=== PATIENT | male | born 1955 | race Caucasian/White ===

== ENCOUNTER 2017-02-19 09:27 | Inpatient (IN) | payer BC ==
--- NOTE | ~2017-02-19 | DS ---
Discharge Summary [facility] [address] [place]. [address] NAME: ESTEVAN GONZALES : 51 STATUS : DIS IN PAT#: [id number] AGE: 61 ADM/REG DATE : 02/19/17 MR#: [id number] REPORT SERV DATE: 03/08/17 DICTATED BY: MILENA WILSON DATE: 03/07/17 REPORT STATUS : Draft TRANSCRIBED BY: DI DATE: 03/07/17 Data Collection from hospitalization DISCHARGE DIAGNOSES: 1. Coronary artery disease. 2. Recent gzg-XN-xpujiqfqb myocardial infarction. 3. Hyperlipidemia. 4. Hypertension. 5. Polio/post-polio syndrome. 6. Epistaxis. 7. Obesity. 8. Gastroesophageal reflux disease. 9. Congenital solitary kidney. CONSULTATIONS: Dr. Don and Dr. Samanta Gallo. PROCEDURES: 1. Cardiac catheterization, 02/19/2017. 2. Urgent coronary artery bypass grafting x5 with CONNOR to the LAD, reversed saphenous vein graft placed to the first diagonal, reversed saphenous vein graft placed to the ramus intermedius, reversed saphenous vein graft placed to the terminal obtuse marginal branch, reversed saphenous vein graft placed to the right ventricular branch of the right coronary artery. Endoscopic vein harvest, saphenous vein from the right leg. Transesophageal echocardiography, 02/20/2017. 3. Carotid blood flow study, 02/20/2017. 4. CT scan of the chest without contrast, 02/23/2017. DISCHARGE MEDICATIONS: Cordarone 200 mg daily, Norvasc 10 mg twice a day, vitamin C 1000 mg twice a day, aspirin 81 mg daily, Lipitor 40 mg at bedtime, Plavix 75 mg daily, Valium 5 mg at bedtime, Prozac 40 mg every morning, Flonase nasal spray two sprays nasally daily as needed, Lopressor 12.5 mg twice a day, multivitamins one tablet daily, Prilosec 40 mg every morning, Percocet 10/325 one tablet every four hours as needed, [place] nasal spray one spray nasally daily as needed. CONDITION ON DISCHARGE: Stable. DISPOSITION: The patient was discharged home on a low-sodium, low-cholesterol, cardiac diet with activities as instructed. He would follow up with Lamin Herrera on 04/26/[address] Satish Don on 03/21/2017. He would follow up in the [facility] six weeks following discharge. HOSPITAL COURSE: This is a 61-year-old man, who is disabled because of polio at the age of 3. He began having severe chest pain on the evening prior to this admission that lasted about 20 minutes, only to have it reoccur, for which he came to the emergency room. His troponins were elevated at 0.24 and 0.92. EKG showed no significant changes and essentially normal on the morning of this admission. His EKG showed ST depression anterolaterally. His presentation was that of a mbj-HO-tkmjtqxbh myocardial infarction. He was admitted to the hospital at this time for further evaluation and treatment. Discharge Summary [address] [address] NAME: ESTEVAN GONZALES : 51 STATUS : DIS IN PAT#: [id number] AGE: 61 ADM/REG DATE : 02/19/17 MR#: [id number] REPORT SERV DATE: 03/08/17 DICTATED BY: MILENA WILSON DATE: 03/07/17 REPORT STATUS : Draft TRANSCRIBED BY: DI DATE: 03/07/17 Upon admission, he was seen by Dr. Satish Don. The patient does have a history of hypertension, but no diabetes mellitus. He was felt to have had a xxr-TU-rttszmfcg myocardial infarction. Heparin drip was started. Beta-lucho, aspirin, and Lipitor were given. Decadron, Benadryl, and Zantac were provided for a history of contrast allergy. The patient was taken to the cardiac roofing laborer, where he underwent the abovementioned procedure by Dr. Krishna Lopes. He tolerated this well, and there were no complications. His coronary arteriogram demonstrated significant flow-limiting disease in the LAD, diagonal, ramus, circumflex, and right coronary arteries. Left ventricular ejection fraction was 50% to 55%. It was felt the patient would need to undergo coronary artery bypass grafting. Following day, he was taken to the operating room, where he underwent the abovementioned procedure. He tolerated this well, and there were no complications. He had also had a carotid blood flow study performed. Postoperatively, the patient was feeling good. Statin therapy was continued. On postop day one, he was up, sitting in a chair. He had no new complaints. His incisions looked okay. White blood cell count was 22.3, which was not unexpected after receiving steroids. Serum creatinine was elevated, we were going to increase oral fluids. On 02/22/2017, the patient did complain of pain. He was poorly using incentive spirometry. He had no edema. We encouraged him to mobilize. He had developed paroxysmal atrial fibrillation, but was now back in a sinus rhythm. He was seen by Dr. Samanta Gallo regarding postoperative hyperglycemia. He was doing well after surgery. He had been given intravenous steroids, and his blood pressure was elevated. He was on an insulin drip after surgery. Blood sugar appeared to be controlled. Hemoglobin A1c of 5.7. Creatinine level was 1.34. The patient was going to be changed to NovoLog level 2 sliding scale and was going to be given one shot of Levemir. He did not have any evidence of diabetes. We were expecting his blood sugar to normalize within two to three days, and it was felt that he would not require any medication for his blood sugar at discharge. Blood pressure was controlled. Amiodarone was continued. On 02/23/2017, he had subcu air in the right neck. O2 saturation was 88% on 2 L, this was increased at 3 L. his incisions looked okay. He had no edema. Postoperative hyperglycemia resolved. He had a good response to Bumex. He had no significant edema. Plavix was stopped. Discharge planning was performed. Serum creatinine was 1.5. He developed some epistaxis. He was in a normal sinus rhythm. He has had multiple bowel movements. He was wanting to go home. Aspirin, Plavix, and atorvastatin were continued. He was ambulating with a walker. On 02/26/2017, he was feeling good. He had no palpitations, chest pain, or shortness of breath. He remained in a sinus rhythm. Discharge instructions were given. Due to his improved and stable condition, he was discharged home with the above-stated instructions. Information collected by: Ashley Elmore I submit the above information as my discharge summary. TG/MODL Milena Wilson M.D. Discharge Summary [address] [address] NAME: ESTEVAN GONZALES : 51 STATUS : DIS IN PAT#: [id number] AGE: 61 ADM/REG DATE : 02/19/17 MR#: [id number] REPORT SERV DATE: 03/08/17 DICTATED BY: MILENA WILSON DATE: 03/07/17 REPORT STATUS : Draft TRANSCRIBED BY: DI DATE: 03/07/17 / [id number] CC: Lani Fontanez D.O. Robert Berglund, M.D.
--- NOTE | ~2017-02-19 | OP ---
Record Of Operation [facility] [address] [place] [place] [place]. [address] NAME: ESTEVAN GONZALES : 51 STATUS : ADM IN PAT#: [id number] AGE: 61 ADM/REG DATE : 02/19/17 MR#: [id number] REPORT SERV DATE: 02/21/17 DICTATED BY: MILENA WILSON DATE: 02/20/17 REPORT STATUS : Draft TRANSCRIBED BY: MODL DATE: 02/20/17 DATE OF PROCEDURE: 02/20/2017 PREOPERATIVE DIAGNOSES: 1. Coronary artery disease with axw-TR-alwhcdgqd myocardial infarction. 2. Remote history of polio with lower extremity paralysis. 3. Hypertension. 4. Hypertriglyceridemia. 5. Obesity. POSTOPERATIVE DIAGNOSES: 1. Coronary artery disease with znh-DM-pbrvydwcq myocardial infarction. 2. Remote history of polio with lower extremity paralysis. 3. Hypertension. 4. Hypertriglyceridemia. 5. Obesity. PROCEDURES PERFORMED: 1. Urgent coronary artery bypass grafting x5, left internal mammary artery placed to left anterior descending, reverse saphenous vein graft placed to the first diagonal, reverse saphenous vein graft placed to the ramus intermedius, reverse saphenous vein graft placed to the terminal obtuse marginal branch, reverse saphenous vein graft placed to the right ventricular branch of the right coronary artery. 2. Endoscopic vein harvest, saphenous vein from the right leg. 3. Transesophageal echocardiography. SURGEON: Milena Wilson M.D. ASSISTANTS: Manpreet Perez and Shakila Tolbert. ANESTHESIA: General with Dr. Bruce. NATIONAL ACCOUNT DIRECTOR: Dr. Krishna Lopes. INDICATIONS: This is a 61-year-old gentleman, who has a remote history of polio at age 3 and now uses mostly wheelchair to get around. He has complete paralysis of the left leg and very weak right leg. He presented to the emergency room after chest discomfort on the night prior to his admission. It lasted for about 20 minutes and recurred earlier in the morning of 02/19/2017 when he came to the emergency room. His troponins were positive and he was admitted with kjs-LV-elwmxfymd myocardial infarction. We were asked to see the patient for possible urgent revascularization secondary to severe disease and qki-CQ-rghurgzzy myocardial infarction. We discussed this operation with the patient and his family. After discussing the operation and its indication and risks, they wished to proceed. STS predicted risk of 0.7% mortality and 8.5% morbidity-mortality was shared with the family. FINDINGS AT OPERATION: Record Of Operation [facility] [place]. [address] NAME: ESTEVAN GONZALES : 51 STATUS : ADM IN PAT#: [id number] AGE: 61 ADM/REG DATE : 02/19/17 MR#: [id number] REPORT SERV DATE: 02/21/17 DICTATED BY: MILENA WILSON DATE: 02/20/17 REPORT STATUS : Draft TRANSCRIBED BY: DI DATE: 02/20/17 1. Cross-clamp 78 minutes, total pump time 91 minutes. 2. The LAD was a heavily diseased vessel. It was 2 mm. A 3 mm CONNOR was anastomosed to it with good runoff. 3. The first diagonal was 1.75 mm and heavily diseased. A 3.5 mm RSVG was anastomosed to it with good runoff. 4. The ramus intermedius was 2 mm and heavily diseased. A 5 mm RSVG was anastomosed to it with good runoff. 5. The terminal obtuse marginal branch was the posterior descending artery. This arose from the circumflex system. It was 1.75 mm and mildly diseased. A 4.5 mm RSVG was anastomosed to it with good runoff. 6. The right ventricular branch was 1.75 mm and moderately diseased. A 4 mm RSVG was anastomosed to it with good runoff. 7. The vein quality was good and all grafts had good Doppler signal at the end of the case. 8. MAHENDRA at the end of the operation demonstrated good ventricular function with no surgically significant valvular pathology. DESCRIPTION OF PROCEDURE: The patient was brought to the operating suite, where general anesthesia was induced and airway secured with an endotracheal tube. Lines were secured by Anesthesia and a Rios catheter was placed. The patient's chest, abdomen, groin, and legs were prepped with Hibiclens and ChloraPrep, and draped with Ioban sterile sheets. MAHENDRA probe was placed by Anesthesia and examination carried out in my attendance as discussed above. The saphenous vein was harvested from the right leg using endoscopic technique. Briefly, the vein was cut directly down upon through a 2 cm incision, placed at the medial aspect of the right knee. Then, using VasoView trocars, the vessel was dissected from the surrounding subcutaneous tissue and fat. The side branches were identified, ligated, and divided with cautery. Once adequate length of vein had been dissected, a counterincision was made up in the groin and in the lower leg, where the vein was ligated, divided, and brought through the knee incision. The vein quality was good. The leg wounds were made hemostatic and closed in layers with absorbable suture and skin closed in subcuticular fashion. Then, a midline sternal incision was made and the sternum opened with a saw. The left hemithorax was elevated and the endothoracic fascia was incised. The side branches of the HIRAL were clipped and divided. Once the HIRAL was completely dissected, the patient was anticoagulated with heparin and chest tube placed the left pleural cavity. The HIRAL was clipped and divided distally. There was good flow through the HIRAL and its pedicle was infiltrated with papaverine. Then, the Onesimo retractor was placed and the pericardium opened from the innominate vein. The diaphragm was T'd and tacked to the side of the chest wall. Cannulation pursestring sutures were placed and cannulation was carried out in routine manner. A retrograde cardioplegia cannula was placed in the coronary sinus. When all was in readiness, the patient was placed on cardiopulmonary bypass. The distal targets were marked out on the heart as described in the findings. Then, a heart support was placed. The aorta was crossclamped and initial dose cold blood cardioplegia solution Record Of Operation [facility] [address] [facility] [place]. [address] NAME: ESTEVAN GONZALES : 51 STATUS : ADM IN PAT#: [id number] AGE: 61 ADM/REG DATE : 02/19/17 MR#: [id number] REPORT SERV DATE: 02/21/17 DICTATED BY: MILENA WILSON DATE: 02/20/17 REPORT STATUS : Draft TRANSCRIBED BY: MODMartine DATE: 02/20/17 was given in a combination of antegrade and retrograde fashion, then in retrograde manner following proximal anastomoses. Following the first dose of cardioplegia, the heart was positioned for the PDA graft. This vessel arose from the circumflex system. Arteriotomy was made. The vein graft was trimmed and anastomosed to it with 7-0 Prolene. This vein graft was measured back to the right side of the ascending aorta, where it was divided. We then positioned the heart for the ramus intermedius graft. Another arteriotomy was made and the vein graft trimmed and anastomosed to it with 7-0 Prolene. This vein graft was then measured back to the left side of the ascending aorta, where it was divided. Next, the proximal ends of these two vein grafts were anastomosed to 5 mm punch aortotomy using 6-0 Prolene. Another dose of cardioplegia was given and the heart was positioned for the diagonal graft. Arteriotomy was made. The vein graft was trimmed and anastomosed to it with 7-0 Prolene. This vein graft was measured back to the left side of the ascending aorta, where it was divided. We then positioned the heart for the right ventricular branch vessel of the right coronary artery. Arteriotomy was made. The vein graft was trimmed and anastomosed to it with 7-0 Prolene. This vein graft was then measured to the right side of the ascending aorta, where it was divided. Next, the proximal ends of these two vein grafts were anastomosed to 4.5 mm punch aortotomy with 6-0 Prolene. Another dose of cardioplegia was given and the heart was positioned for the LAD graft. Warming was begun. A long arteriotomy was made through a heavily diseased LAD. The HIRAL was brought out of the left chest through a notch in the pericardium over the pulmonary artery. The HIRAL was opened and anastomosed to the LAD with a running suture of 8-0 Prolene. The endothoracic fascia was tacked to the epicardium. The patient was placed in Trendelenburg and a final dose of warm blood cardioplegia given in retrograde fashion. Ventricular and atrial pacing wires were placed. Following the last dose of cardioplegia and deairing of the aorta, the aortic cross clamp was removed. Distal and proximal anastomoses were inspected and made hemostatic. Doppler demonstrated good flow through the grafts. The heart was paced in an AV sequential fashion at a rate of 80. Ventilations were begun. When the heart demonstrated good contractility, it was allowed to fill and eject. When deairing was completed, the patient was taken out of Trendelenburg and the ascending aortic vent removed and these pursestring sutures tied and reinforced. The patient was then weaned from cardiopulmonary bypass with minimal inotropic support. The venous cannula was removed and these pursestring sutures were tied. MAHENDRA examination demonstrated good ventricular function with no surgically significant valvular pathology. Protamine was administered by Anesthesia and following a period of hemodynamic stability, the aortic cannula was removed and these pursestring sutures tied and reinforced. The patient continued to do well and chest irrigated copiously with saline. Meticulous hemostasis was obtained. Hemasorb was placed along the cut edge of the sternum. Once hemostasis was assured, the pericardium was draped over the anterior surface of the heart and tacked into position. Doppler demonstrated good flow through the grafts following protamine administration. Then, chest tubes were placed and the sternum reapproximated with Record Of Operation [place] [id number] [facility] [place]. [address] NAME: ESTEVAN GONZALES : 51 STATUS : ADM IN [facility]#: [id number] AGE: 61 ADM/REG DATE : 02/19/17 MR#: [id number] REPORT SERV DATE: 02/21/17 DICTATED BY: MILENA WILSON DATE: 02/20/17 REPORT STATUS : Draft TRANSCRIBED BY: DI DATE: 02/20/17 8 sternal wires. The clavipectoral fascia and linea alba were closed with #1 Stratafix. The subcutaneous tissue was closed with Stratafix and skin closed in subcuticular fashion. The patient tolerated the procedure well. There were no complications. Sponge and needle counts were correct. DISPOSITION: The patient was left intubated, sedated, and transported to the intensive care unit in stable condition. TOMAS/DI Milena Wilson M.D. / [id number] CC: Lani Fontanez D.O.
--- NOTE | ~2017-02-19 | CN ---
Consultation Report [facility] [address] [place]. [address] NAME: ESTEVAN GONZALES : 51 STATUS : ADM IN [facility]#: [id number] AGE: 61 ADM/REG DATE : 02/19/17 MR#: [id number] REPORT SERV DATE: 02/22/17 DICTATED BY: ARNALDO SERNA DATE: 02/22/17 REPORT STATUS : Draft TRANSCRIBED BY: MODL DATE: 02/22/17 CONSULTATION DATE OF CONSULTATION: 02/22/2017 REASON FOR CONSULTATION: Postoperative hyperglycemia. HISTORY OF PRESENT ILLNESS: The patient is a 61-year-old male, who is status post coronary artery bypass grafting on 02/20/[address] Wilson. I am consulted for postoperative hyperglycemia. He is doing well after surgery. He denies any shortness of breath. He is complaining of mild postsurgical tenderness on the chest wall. No chest pain. He does not have any history of diabetes. Postoperatively, he was given intravenous steroids and his blood sugar was elevated. He was on insulin drip after surgery, and currently he requires 4 units of regular insulin hourly. Blood sugar looks to be controlled. PAST MEDICAL HISTORY: Includes coronary artery disease, history of remote poliomyelitis with lower extremity paralysis, hypertension, hypertriglyceridemia, obesity, congenital solitary kidney, also gastroesophageal reflux disease, and history of vasomotor rhinitis with prior epistaxis. PAST SURGICAL HISTORY: Includes significant carpal tunnel release, excision of skin lesions, and previous orthopedic surgeries due to history of poliomyelitis. ALLERGIES: INCLUDE IODINATED CONTRAST, TEGRETOL, AND HE HAS TWO EPISODES OF INTOLERANCE OF STATINS WITH MYALGIAS. FAMILY HISTORY: Father and mother both had coronary artery disease, and history of hypercholesterolemia in the family. SOCIAL HISTORY: He is . 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 Currently, he is not working. Disabled. No recreational drug use. No smoking. No alcohol. HOME MEDICATIONS: Include Norvasc 10 mg a day, Valium 5 mg a day, Prozac 40 mg a day, multivitamins daily, Benicar 40 mg a day, and Prilosec 40 mg a day. REVIEW OF SYSTEMS: A 14-point review of systems was done and negative, except what is stated in the history of present illness. PHYSICAL EXAMINATION: GENERAL: Well-nourished, well-developed male, not in acute distress. Resting quietly. VITAL SIGNS: Blood pressure 141/73, temperature 98.4, heart rate 76, respirations 16, and oxygen saturation 93% on room air. HEENT: Head is atraumatic, normocephalic. Conjunctivae clear. Pupils are equal and Consultation Report [facility] [address] [place]. [address] NAME: ESTEVAN GONZALES : 51 STATUS : ADM IN [facility]#: [id number] AGE: 61 ADM/REG DATE : 02/19/17 MR#: [id number] REPORT SERV DATE: 02/22/17 DICTATED BY: ARNALDO SERNA DATE: 02/22/17 REPORT STATUS : Draft TRANSCRIBED BY: DI DATE: 02/22/17 reactive to light and accommodation. Extraocular muscles are intact. NECK: Supple. Trachea is midline. LYMPHATICS: No supraclavicular or cervical lymphadenopathy. LUNGS: Clear to auscultation bilaterally. Normal respiratory effort. CARDIOVASCULAR: Regular rate and rhythm. Point of maximal impulse not displaced. ABDOMEN: Soft, nontender, and nondistended. Positive normoactive bowel sounds. EXTREMITIES: No clubbing, cyanosis. No edema. SKIN: Normal color and turgor. PSYCHIATRIC: Normal mood and affect. LABORATORY RESULTS: Blood sugar 150, 167, 167, 136, and 101. Currently on 4 units of insulin hourly. Hemoglobin A1c is 5.7. White count 24.5, hemoglobin 11.5, hematocrit 34.7, and platelet count 201. Sodium 140, potassium 4, chloride 106, carbon dioxide 23, BUN 26, creatinine 1.34, and blood sugar 125. ASSESSMENT AND PLAN: 1. This is a 61-year-old male, having postoperative hyperglycemia secondary to steroids given after surgery as well as postsurgical stress. The patient is going to be changed to NovoLog level 2 sliding scale as well as he is going to be given 1 shot of Levemir today 15 units. He does not have any evidence of diabetes. His hemoglobin A1c is 5.6. We are expecting his sugar to normalize within two to three days, and he will not require any medications for his blood sugar on discharge. 2. Hypertension, controlled. MG/MODL Arnaldo Serna M.D. / [id number] CC: Lani Fontanez D.O.
--- NOTE | ~2017-02-19 | CN ---
Consultation Report [facility] [address] [place]. [address] NAME: ESTEVAN GONZALES : 51 STATUS : REG REF PAT#: [id number] AGE: 61 ADM/REG DATE : 02/19/17 MR#: [id number] REPORT SERV DATE: 02/20/17 DICTATED BY: MILENA WILSON DATE: 02/20/17 REPORT STATUS : Draft TRANSCRIBED BY: MODL DATE: 02/20/17 CONSULTATION DATE OF CONSULTATION: 02/19/2017 REASON FOR CONSULTATION: Coronary artery disease, consideration for coronary artery bypass grafting in the context of recent axz-CC-rtgrftgaj myocardial infarction. CHIEF COMPLAINT: Chest pain, onset Sunday. HISTORY OF PRESENT ILLNESS: This is a 61-year-old gentleman with no prior history of coronary artery disease, who describes about a 3-month history of decreasing energy and exercise tolerance. He had polio as a child, hence much of his day in a wheelchair. He reports that although he is accustomed to weakness as a consequence of his polio, he has noted a decrease in his energy over the past three months. He denies any prior chest pain until Sunday night, when about midnight he was watching television experienced severe chest pain. This radiated into both shoulders and arms and up into his neck and was described as a pressure or a feeling that his jaw had been punched repeatedly. He had associated shortness of breath. He describes the pain as a 9/10 and this lasted about 20 minutes and then slowly decreased, but never left completely. He then experienced crescendo of his pain again and drove himself to the emergency department. By the time he arrived at the emergency department, his pain was nearly resolved, but after registering in, he re- experienced chest pain, he graded about a 6/10. At this time, he was given morphine, nitrates, and aspirin. He was found to have mildly elevated troponin I and yesterday underwent coronary arteriogram that demonstrated significant flow-limiting disease in the left anterior descending, diagonal, ramus, circumflex, and right coronary arteries. Left ventricular ejection fraction was 50% to 55% and we were asked to see for possible elective coronary artery bypass grafting. The films were reviewed with Dr. Loeps last night, and after talking with the patient, he would prefer to stay and have surgery now rather than have surgery electively. PRIOR MEDICAL HISTORY: 1. Polio. 2. Post-polio syndrome. 3. Hypertension. 4. Hyperlipidemia. 5. Congenital solitary kidney, also gastroesophageal reflux disease and irritable bowel syndrome. 6. Vasomotor rhinitis/sinusitis, prior epistaxis. PRIOR SURGICAL HISTORY: Significant for carpal tunnel release, excision of skin lesions, previous orthopedic surgeries due to history of polio. ALLERGIES: INCLUDE IODINATED CONTRAST MEDIA, TEGRETOL, AND HE HAS HAD TWO EPISODES OF Consultation Report [place] [address] [place]. [address] NAME: ESTEVAN GONZALES : 51 STATUS : REG REF PAT#: [id number] AGE: 61 ADM/REG DATE : 02/19/17 MR#: [id number] REPORT SERV DATE: 02/20/17 DICTATED BY: MILENA WILSON DATE: 02/20/17 REPORT STATUS : Draft TRANSCRIBED BY: DI DATE: 02/20/17 INTOLERANCE TO STATIN DRUGS WITH MYALGIAS. FAMILY HISTORY: Father and mother both had coronary artery disease and underwent PCI, also family history of high cholesterol. 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 Currently, he is not working and is disabled. He does use marijuana on a daily basis. REVIEW OF SYSTEMS: GENERAL: Negative for any recent weight change, fevers, chills, night sweats, or malaise. ENT: As above. RESPIRATORY: Negative for lung problems. Negative for shortness of breath. Negative for hemoptysis. CV: As above. GI: Positive for reflux and irritable bowel. : Positive for solitary kidney and difficulty emptying his bladder. Negative for hematuria or urinary tract infections. MUSCULOSKELETAL: Atrophied and deformed left lower extremity, loss of strength in the right lower extremity. NEURO/PSYCH: Denies any strokes or TIAs. He has diminished strength in both lower extremities. He spends much of his day in his wheelchair and is able to walk briefly with use of a walker. HEME/ONC: Negative for cancer other than skin cancers negative for free bleeding or easy bruising. ENDOCRINE: Negative for any thyroid problems. Negative for diabetes. Otherwise, negative or as above. PHYSICAL EXAMINATION: GENERAL: He is a pleasant overweight white male, in no acute distress. His height is 170.18 cm, weight 84.96 kg. VITAL SIGNS: Blood pressure 129/73, temperature 98.3, pulse 67, respirations 16, saturations 92%. HEENT: Normocephalic, atraumatic. Pupils equal, round, reactive to light and accommodation. Sclerae clear, conjunctivae pink. Oral and buccal mucosa pink and moist. Teeth in good condition. Mallampati class 1 airway. NECK: Supple. No restricted range of motion. No carotid bruits. No jugular venous distention. CHEST: Clear to auscultation, no use of accessory muscles, no chest wall tenderness. BREASTS: Not examined. CV: Regular rate and rhythm without murmur or rub. He has palpable and symmetric central and peripheral pulses, no clubbing, cyanosis, or edema. ABDOMEN: Soft, obese, nontender with normoactive bowel sounds. No hepatosplenomegaly. /RECTAL: Declined. MUSCULOSKELETAL: No kyphoscoliosis, his left leg is somewhat misshapen and atrophied and right leg lacks muscle tone. Consultation Report [address] [address] NAME: ESTEVAN GONZALES : 51 STATUS : REG REF PAT#: [id number] AGE: 61 ADM/REG DATE : 02/19/17 MR#: [id number] REPORT SERV DATE: 02/20/17 DICTATED BY: MILENA WILSON DATE: 02/20/17 REPORT STATUS : Draft TRANSCRIBED BY: DI DATE: 02/20/17 NEUROLOGIC: He is alert and oriented to day, date, place, and situation. Speech is clear, fluent. No focal neurologic deficits. SKIN, HAIR, AND NAILS: No lesions, masses, or rashes. DATA: He has coronary arteriogram which we reviewed with Dr. Lopes. His EKG showing nonspecific T-wave changes, underlying sinus rhythm. LABORATORIES: Sodium is 140, potassium 3.5, chloride 107, CO2 of 25, BUN 23, creatinine 1.18. His INR is 1.1. Urinalysis is clean. CBC shows mild leukocytosis with WBCs 13.1, hemoglobin 13.2, hematocrit 39.1, and platelets 263,000. Carotid ultrasound is currently pending. IMPRESSION: Three-vessel flow-limiting coronary artery disease in a 61-year-old gentleman, status post prior polio with multiple risk factors for coronary artery disease. We talked to him about possible coronary artery bypass grafting, indications, benefits, and serious risks which include things like bleeding, need for blood or blood product transfusion and their attendant risks, damage to the kidneys including kidney failure and dialysis, damage to the liver or the lungs, infection including deep sternal infection, mediastinitis, heart attack, stroke, abnormal heart rhythm which occurs in 1/3 patients, and even . Using Society of Thoracic Surgeons database, his risk of mortality was calculated at 0.683%, any morbidity or mortality at 8.544% and this was shared with the patient and his family. He indicates his understanding and is willing to proceed. Our plan is for coronary artery bypass grafting at this admission. We appreciate the opportunity to participate in this gentleman's care. DICTATED BY: Fabian Mccoy/DI Milena Wilson M.D. / [id number] CC: Lani Fontanez D.O.
[~2017-02-19 09:27] MED LIST: BENICAR40 PO; KAPIDEX60 MG PO; MULTIPLE VIT PO; NORV10 PO; PROZAC40 MG PO; V5 PO
[2017-02-19] MEDS ORDERED: ADVIL PO (14:45)
[2017-02-19] MEDS ORDERED: OCEAN NAS (14:47)
[2017-02-19] MEDS ORDERED: FLONASE NAS (14:51)
[2017-02-19 18:28] LABS: ALLENS TEST Pos; BE (BASE EXCESS) 1.8 MEQ/L (0 +/- 2.5); CARBOXYHEMOGLOBIN 1.4 % (0-3); HCO3 (ACTUAL BICARBONATE) 25.5 MEQ/L (23-27); HEMOBLOGIN CONTENT 15.2 G/DL (14-18); INSTRUMENT SERIAL # 8087; METHEMOGLOBIN 0.2 % (0-3); O2 CONTENT 20.4 VOL% (18-24); PCO2 (CO2 TENSION) 37 MMHG (35-45); PO2 (O2 TENSION) 84 MMHG (79-93); SAMPLE Arterial; pH 7.45 (7.37-7.43)
[2017-02-19 23:05] LABS: ASCORBIC ACID (UR NOT ORDER) NEG (NEG); BILIRUBIN, URINE NEGATIVE (NEG); KETONE, URINE NEGATIVE (NEG); LEUKOCYTE ESTERASE(NOT OR NEG (NEG); WBC (NOT ORDERED) (RFLEX) < 1 (0-5)
[2017-02-20 04:37] LABS: BASOPHILS 0.2 %; BASOPHILS ABSOLUTE 0.03 10/3/uL (0.0-0.16); EOSINOPHILS 0.4 %; EOSINOPHILS ABSOLUTE 0.05 10/3/uL (0.0-0.53); HEMATOCRIT 39.1 % (40.0-51.0); HEMOGLOBIN 13.2 g/dL (13.6-17.8); IMMATURE GRANULOCYTES 0.2 %; IMMATURE GRANULOCYTES ABSOLUTE 0.03 10/3/uL (0.0-0.11); LYMPHOCYTES 12.5 %; LYMPHOCYTES ABSOLUTE 1.64 10/3/uL (0.67-4.30); MANUAL DIFF NO %; MEAN CORPUS HGB CONC 33.8 g/dL (32.0-36.0); MEAN CORPUSCULAR HEMOGLOB 31.2 pg (26.0-34.0); MEAN CORPUSCULAR VOLUME 92.4 fL (80-100); MEAN PLATELET VOLUME 8.6 fL (9.2-13.0); MONOCYTES 6.7 %; MONOCYTES ABSOLUTE 0.88 10/3/uL (0.21-1.20); NEUTROPHILS ABSOLUTE 10.51 10/3/uL (2.02-8.40); PLATELET COUNT 263 10/3/uL (150-400); RBC DISTRIBUTION WIDTH 13.8 % (12.0-16.0); RED CELL COUNT 4.23 10/6/uL (4.7-6.1); WHITE BLOOD CELLS 13.1 10/3/uL (4.5-10.5)
[2017-02-20 04:43] LABS: INTERNATIONAL NORMAL RATI 1.1 UNITS (-); PROTIME (NOT ORD) 14.1 SEC (12.0-14.5)
[2017-02-20 05:06] LABS: % IRON SAT 37 % (20-50); ALBUMIN 3.3 G/DL (3.5-5.0); ALKALINE PHOSPHATASE 64 U/L (45-117); BUN (BLOOD UREA NITROGEN) 23 MG/DL (6-23); CALCIUM, SERUM 8.7 MG/DL (8.5-10.4); CHLORIDE, SERUM 107 MMOL/L (96-112); CO2 (CARBON DIOXIDE) 25 MMOL/L (24-34); CREATININE 1.18 MG/DL (0.70-1.30); GFR AFRICAN AMERICAN 76 ML/MIN (>=60); GFR NON AFRICAN AMERICAN 65 ML/MIN (>=60); GLOBULIN 3.3 G/DL (2.5-4.1); GLUCOSE, SERUM 110 MG/DL (60-99); IRON BINDING CAPACITY 313 MCG/DL (250-450); IRON, SERUM 117 MCG/DL (35-150); POTASSIUM, SERUM 3.5 MMOL/L (3.5-5.3); SGOT(AST) 21 U/L (5-40); SGPT(ALT) 23 U/L (5-65); SODIUM, SERUM 140 MMOL/L (135-148); TOTAL BILIRUBIN 0.4 MG/DL (0-1.2); TOTAL PROTEIN 6.6 G/DL (6.0-8.5)
[2017-02-20 20:13] LABS: BE (BASE EXCESS) -3.9 MEQ/L (0 +/- 2.5); CARBOXYHEMOGLOBIN 0.3 % (0-3); HCO3 (ACTUAL BICARBONATE) 21.1 MEQ/L (23-27); HEMOBLOGIN CONTENT 13.4 G/DL (14-18); INSTRUMENT SERIAL # 11843; METHEMOGLOBIN 0.6 % (0-3); MODE SIMV; O2 CONTENT 19.4 VOL% (18-24); OPERATOR ID 13415; PCO2 (CO2 TENSION) 39 MMHG (35-45); PO2 (O2 TENSION) 343 MMHG (79-93); SAMPLE Arterial; TIDAL VOLUME 650 ML; pH 7.36 (7.37-7.43)
[2017-02-20 20:30] LABS: HEMATOCRIT 36.7 % (40.0-51.0); HEMOGLOBIN 12.3 g/dL (13.6-17.8)
[2017-02-20 20:31] LABS: PLATELET COUNT 181 10/3/uL (150-400)
[2017-02-20 20:41] LABS: INTERNATIONAL NORMAL RATI 1.3 UNITS (-); PARTIAL THROMBO TIME 29.6 SEC (22.5-37.2); PROTIME (NOT ORD) 15.9 SEC (12.0-14.5)
[2017-02-20 20:45] LABS: BUN (BLOOD UREA NITROGEN) 22 MG/DL (6-23); CALCIUM, SERUM 8.8 MG/DL (8.5-10.4); CHLORIDE, SERUM 112 MMOL/L (96-112); CO2 (CARBON DIOXIDE) 27 MMOL/L (24-34); CREATININE 1.44 MG/DL (0.70-1.30); GFR AFRICAN AMERICAN 59 ML/MIN (>=60); GFR NON AFRICAN AMERICAN 51 ML/MIN (>=60); GLUCOSE, SERUM 115 MG/DL (60-99); POTASSIUM, SERUM 3.8 MMOL/L (3.5-5.3); SODIUM, SERUM 144 MMOL/L (135-148)
[2017-02-21 01:11] LABS: BE (BASE EXCESS) -2.5 MEQ/L (0 +/- 2.5); CARBOXYHEMOGLOBIN 0.2 % (0-3); DEVICE NC; HCO3 (ACTUAL BICARBONATE) 23.3 MEQ/L (23-27); HEMOBLOGIN CONTENT 13.8 G/DL (14-18); INSTRUMENT SERIAL # 11843; METHEMOGLOBIN 0.4 % (0-3); O2 CONTENT 18.8 VOL% (18-24); OPERATOR ID 13415; PCO2 (CO2 TENSION) 44 MMHG (35-45); PO2 (O2 TENSION) 99 MMHG (79-93); SAMPLE Arterial; pH 7.34 (7.37-7.43)
[2017-02-21 02:36] LABS: HEMATOCRIT 38.6 % (40.0-51.0); HEMOGLOBIN 12.9 g/dL (13.6-17.8); MANUAL DIFF YES %; MEAN CORPUS HGB CONC 33.4 g/dL (32.0-36.0); MEAN CORPUSCULAR HEMOGLOB 31.4 pg (26.0-34.0); MEAN CORPUSCULAR VOLUME 93.9 fL (80-100); PLATELET COUNT 210 10/3/uL (150-400); RBC DISTRIBUTION WIDTH 13.9 % (12.0-16.0); RED CELL COUNT 4.11 10/6/uL (4.7-6.1); WHITE BLOOD CELLS 22.3 10/3/uL (4.5-10.5)
[2017-02-21 02:51] LABS: BUN (BLOOD UREA NITROGEN) 24 MG/DL (6-23); CALCIUM, SERUM 8.2 MG/DL (8.5-10.4); CHLORIDE, SERUM 117 MMOL/L (96-112); CO2 (CARBON DIOXIDE) 25 MMOL/L (24-34); CREATININE 1.36 MG/DL (0.70-1.30); GFR AFRICAN AMERICAN 64 ML/MIN (>=60); GFR NON AFRICAN AMERICAN 55 ML/MIN (>=60); GLUCOSE, SERUM 100 MG/DL (60-99); POTASSIUM, SERUM 4.2 MMOL/L (3.5-5.3); SODIUM, SERUM 150 MMOL/L (135-148)
[2017-02-21 02:54] LABS: BAND NEUTROPHILS 5 %; LYMPHOCYTES 3 %; LYMPHOCYTES ABSOLUTE (CALC) 0.67 10/3/uL (0.67-4.30); MONOCYTES 1 %; MONOCYTES ABSOLUTE (CALC) 0.22 10/3/uL (0.21-1.20); NEUTROPHILS ABSOLUTE (CALC) 21.41 10/3/uL (2.02-8.40); PLATELET ESTIMATE ADQ (ADEQUATE); RBC MORPHOLOGY NORM (NORMAL); SEGMENTED NEUTROPHIL (0) 91 %; TOTAL NUCLEATED CELLS 100
[2017-02-21 15:37] LABS: HEMATOCRIT 35.8 % (40.0-51.0)
[2017-02-22 04:28] LABS: HEMATOCRIT 34.7 % (40.0-51.0); HEMOGLOBIN 11.5 g/dL (13.6-17.8); MEAN CORPUS HGB CONC 33.1 g/dL (32.0-36.0); MEAN CORPUSCULAR VOLUME 93.5 fL (80-100); MEAN PLATELET VOLUME 9.5 fL (9.2-13.0); PLATELET COUNT 201 10/3/uL (150-400); RBC DISTRIBUTION WIDTH 14.6 % (12.0-16.0); RED CELL COUNT 3.71 10/6/uL (4.7-6.1); WHITE BLOOD CELLS 24.5 10/3/uL (4.5-10.5)
[2017-02-22 04:31] LABS: MANUAL DIFF YES %
[2017-02-22 04:35] LABS: BUN (BLOOD UREA NITROGEN) 26 MG/DL (6-23); CALCIUM, SERUM 8.5 MG/DL (8.5-10.4); CO2 (CARBON DIOXIDE) 23 MMOL/L (24-34); CREATININE 1.34 MG/DL (0.70-1.30); GFR AFRICAN AMERICAN 65 ML/MIN (>=60); GFR NON AFRICAN AMERICAN 56 ML/MIN (>=60); GLUCOSE, SERUM 125 MG/DL (60-99)
[2017-02-22 04:39] LABS: CHLORIDE, SERUM 106 MMOL/L (96-112); SODIUM, SERUM 140 MMOL/L (135-148)
[2017-02-22 04:52] LABS: BAND NEUTROPHILS 3 %; LYMPHOCYTES 11 %; MONOCYTES 5 %; MONOCYTES ABSOLUTE (CALC) 1.23 10/3/uL (0.21-1.20); NEUTROPHILS ABSOLUTE (CALC) 20.58 10/3/uL (2.02-8.40); SEGMENTED NEUTROPHIL (0) 81 %; TOTAL NUCLEATED CELLS 100
[2017-02-22 04:53] LABS: PLATELET ESTIMATE ADQ (ADEQUATE); RBC MORPHOLOGY NORM (NORMAL)
[2017-02-23 05:33] LABS: BASOPHILS 0 %; BASOPHILS ABSOLUTE 0.01 10/3/uL (0.0-0.16); EOSINOPHILS 1.4 %; EOSINOPHILS ABSOLUTE 0.28 10/3/uL (0.0-0.53); HEMATOCRIT 32.5 % (40.0-51.0); IMMATURE GRANULOCYTES 0.4 %; IMMATURE GRANULOCYTES ABSOLUTE 0.08 10/3/uL (0.0-0.11); MANUAL DIFF NO %; MEAN CORPUS HGB CONC 33.8 g/dL (32.0-36.0); MEAN CORPUSCULAR HEMOGLOB 31.3 pg (26.0-34.0); MEAN CORPUSCULAR VOLUME 92.3 fL (80-100); MEAN PLATELET VOLUME 9.4 fL (9.2-13.0); MONOCYTES 10.2 %; MONOCYTES ABSOLUTE 2.05 10/3/uL (0.21-1.20); NEUTROPHILS ABSOLUTE 16.54 10/3/uL (2.02-8.40); PLATELET COUNT 198 10/3/uL (150-400); RBC DISTRIBUTION WIDTH 14.6 % (12.0-16.0); RED CELL COUNT 3.52 10/6/uL (4.7-6.1); WHITE BLOOD CELLS 20.2 10/3/uL (4.5-10.5)
[2017-02-23 05:40] LABS: CALCIUM, SERUM 8.3 MG/DL (8.5-10.4); CHLORIDE, SERUM 105 MMOL/L (96-112); CO2 (CARBON DIOXIDE) 24 MMOL/L (24-34); CREATININE 1.37 MG/DL (0.70-1.30); GFR AFRICAN AMERICAN 63 ML/MIN (>=60); GFR NON AFRICAN AMERICAN 55 ML/MIN (>=60); GLUCOSE, SERUM 114 MG/DL (60-99); POTASSIUM, SERUM 4.1 MMOL/L (3.5-5.3); SODIUM, SERUM 138 MMOL/L (135-148)
[2017-02-23 05:42] LABS: BUN (BLOOD UREA NITROGEN) 33 MG/DL (6-23)
[2017-02-24 06:33] LABS: BASOPHILS 0.1 %; BASOPHILS ABSOLUTE 0.02 10/3/uL (0.0-0.16); EOSINOPHILS 5.3 %; EOSINOPHILS ABSOLUTE 0.72 10/3/uL (0.0-0.53); HEMATOCRIT 32.8 % (40.0-51.0); HEMOGLOBIN 11.5 g/dL (13.6-17.8); IMMATURE GRANULOCYTES 0.4 %; IMMATURE GRANULOCYTES ABSOLUTE 0.05 10/3/uL (0.0-0.11); LYMPHOCYTES 10.5 %; LYMPHOCYTES ABSOLUTE 1.42 10/3/uL (0.67-4.30); MEAN CORPUS HGB CONC 35.1 g/dL (32.0-36.0); MEAN CORPUSCULAR HEMOGLOB 32.6 pg (26.0-34.0); MEAN CORPUSCULAR VOLUME 92.9 fL (80-100); MEAN PLATELET VOLUME 9.2 fL (9.2-13.0); MONOCYTES 9.1 %; MONOCYTES ABSOLUTE 1.22 10/3/uL (0.21-1.20); NEUTROPHILS 74.6 %; NEUTROPHILS ABSOLUTE 10.03 10/3/uL (2.02-8.40); PLATELET COUNT 232 10/3/uL (150-400); RBC DISTRIBUTION WIDTH 14.3 % (12.0-16.0); RED CELL COUNT 3.53 10/6/uL (4.7-6.1); WHITE BLOOD CELLS 13.5 10/3/uL (4.5-10.5)
[2017-02-24 06:34] LABS: MANUAL DIFF NO %
[2017-02-24 06:45] LABS: CALCIUM, SERUM 8.3 MG/DL (8.5-10.4); CHLORIDE, SERUM 104 MMOL/L (96-112); CREATININE 1.42 MG/DL (0.70-1.30); GFR AFRICAN AMERICAN 60 ML/MIN (>=60); GFR NON AFRICAN AMERICAN 52 ML/MIN (>=60); GLUCOSE, SERUM 117 MG/DL (60-99); POTASSIUM, SERUM 3.5 MMOL/L (3.5-5.3); SODIUM, SERUM 143 MMOL/L (135-148)
[2017-02-24 06:46] LABS: BUN (BLOOD UREA NITROGEN) 29 MG/DL (6-23); CO2 (CARBON DIOXIDE) 32 MMOL/L (24-34)
[2017-02-25 04:12] LABS: BASOPHILS 0.2 %; BASOPHILS ABSOLUTE 0.03 10/3/uL (0.0-0.16); EOSINOPHILS 6.7 %; EOSINOPHILS ABSOLUTE 0.88 10/3/uL (0.0-0.53); HEMATOCRIT 31.5 % (40.0-51.0); HEMOGLOBIN 10.5 g/dL (13.6-17.8); IMMATURE GRANULOCYTES 0.4 %; IMMATURE GRANULOCYTES ABSOLUTE 0.05 10/3/uL (0.0-0.11); LYMPHOCYTES 15.6 %; LYMPHOCYTES ABSOLUTE 2.05 10/3/uL (0.67-4.30); MANUAL DIFF NO %; MEAN CORPUS HGB CONC 33.3 g/dL (32.0-36.0); MEAN CORPUSCULAR VOLUME 92.9 fL (80-100); MEAN PLATELET VOLUME 9.1 fL (9.2-13.0); MONOCYTES 10.7 %; NEUTROPHILS 66.4 %; NEUTROPHILS ABSOLUTE 8.69 10/3/uL (2.02-8.40); PLATELET COUNT 273 10/3/uL (150-400); RBC DISTRIBUTION WIDTH 14.5 % (12.0-16.0); RED CELL COUNT 3.39 10/6/uL (4.7-6.1); WHITE BLOOD CELLS 13.1 10/3/uL (4.5-10.5)
[2017-02-25 04:23] LABS: BUN (BLOOD UREA NITROGEN) 37 MG/DL (6-23); CALCIUM, SERUM 8.4 MG/DL (8.5-10.4); CHLORIDE, SERUM 105 MMOL/L (96-112); CO2 (CARBON DIOXIDE) 29 MMOL/L (24-34); CREATININE 1.51 MG/DL (0.70-1.30); GFR AFRICAN AMERICAN 56 ML/MIN (>=60); GFR NON AFRICAN AMERICAN 48 ML/MIN (>=60); GLUCOSE, SERUM 123 MG/DL (60-99); POTASSIUM, SERUM 3.8 MMOL/L (3.5-5.3); SODIUM, SERUM 141 MMOL/L (135-148)
[2017-02-26 04:03] LABS: BASOPHILS 0.3 %; BASOPHILS ABSOLUTE 0.04 10/3/uL (0.0-0.16); HEMATOCRIT 33.1 % (40.0-51.0); IMMATURE GRANULOCYTES 0.4 %; IMMATURE GRANULOCYTES ABSOLUTE 0.06 10/3/uL (0.0-0.11); LYMPHOCYTES 16.5 %; MEAN CORPUS HGB CONC 33.2 g/dL (32.0-36.0); MEAN CORPUSCULAR VOLUME 93.2 fL (80-100); MEAN PLATELET VOLUME 8.9 fL (9.2-13.0); MONOCYTES 6.4 %; MONOCYTES ABSOLUTE 0.89 10/3/uL (0.21-1.20); NEUTROPHILS 71.4 %; NEUTROPHILS ABSOLUTE 9.95 10/3/uL (2.02-8.40); PLATELET COUNT 314 10/3/uL (150-400); RBC DISTRIBUTION WIDTH 14.3 % (12.0-16.0); RED CELL COUNT 3.55 10/6/uL (4.7-6.1); WHITE BLOOD CELLS 13.9 10/3/uL (4.5-10.5)
[2017-02-26 04:07] LABS: MANUAL DIFF NO %
[2017-02-26 04:13] LABS: CALCIUM, SERUM 8.9 MG/DL (8.5-10.4); CHLORIDE, SERUM 101 MMOL/L (96-112); CO2 (CARBON DIOXIDE) 28 MMOL/L (24-34); CREATININE 1.37 MG/DL (0.70-1.30); GFR AFRICAN AMERICAN 63 ML/MIN (>=60); GFR NON AFRICAN AMERICAN 55 ML/MIN (>=60); GLUCOSE, SERUM 140 MG/DL (60-99); POTASSIUM, SERUM 3.9 MMOL/L (3.5-5.3); SODIUM, SERUM 137 MMOL/L (135-148)
[2017-02-26 04:14] LABS: BUN (BLOOD UREA NITROGEN) 24 MG/DL (6-23)
[2017-02-26] MEDS ORDERED: PLAVIX PO (09:09)
[2017-02-26] MEDS ORDERED: LIPITOR40 PO (09:10)
[2017-02-26] MEDS ORDERED: LOP25 PO (09:10)
[2017-02-26] MEDS ORDERED: CORDARONE PO (09:11)
[2017-02-26] MEDS ORDERED: PERCOCET 10/3251 TAB PO (09:11)
[2017-02-26] MEDS ORDERED: ASAB PO (09:12)
[2017-02-26] MEDS ORDERED: VITC500 PO (09:12)
== END 2017-02-26 13:20 | disposition home or self-care (01) | DRG 233 ==
LOC: CORLMH 09:27 → SSU1 10:43 → SDC/OF 02-20 09:45 → CVICU 02-20 16:06 → 5NO 02-21 14:03
PROVIDERS: Internal Medicine Cardiovascular Disease; Nurse Practitioner Family; Thoracic Surgery (Cardiothoracic Vascular Surgery)
PROC: 4A023N7 Measurement of Cardiac Sampling and Pressure, Left Heart, Percutaneous Approach (ICD-10-PCS; principal; 2017-02-19)
PROC: B2111ZZ Fluoroscopy of Multiple Coronary Arteries using Low Osmolar Contrast (ICD-10-PCS; 2017-02-19)
PROC: B2151ZZ Fluoroscopy of Left Heart using Low Osmolar Contrast (ICD-10-PCS; 2017-02-19)
PROC: 0210099 Bypass Coronary Artery, One Artery from Left Internal Mammary with Autologous Venous Tissue, Open Approach (ICD-10-PCS; 2017-02-20)
PROC: 06BP0ZZ Excision of Right Saphenous Vein, Open Approach (ICD-10-PCS; 2017-02-20)
PROC: 5A1221Z Performance of Cardiac Output, Continuous (ICD-10-PCS; 2017-02-20)
PROC: B246ZZ4 Ultrasonography of Right and Left Heart, Transesophageal (ICD-10-PCS; 2017-02-20)
PROC: 021309W Bypass Coronary Artery, Four or More Arteries from Aorta with Autologous Venous Tissue, Open Approach (ICD-10-PCS; 2017-02-20 13:30)
DX: I25.10 Atherosclerotic heart disease of native coronary artery without angina pectoris (principal); I21.4 Non-ST elevation (NSTEMI) myocardial infarction; E87.0 Hyperosmolality and hypernatremia; Q60.0 Renal agenesis, unilateral; N17.9 Acute kidney failure, unspecified; N18.3 Chronic kidney disease, stage 3 (moderate); G83.9 Paralytic syndrome, unspecified; E78.5 Hyperlipidemia, unspecified; K21.9 Gastro-esophageal reflux disease without esophagitis; K58.9 Irritable bowel syndrome, unspecified; Z86.12 Personal history of poliomyelitis; Z82.49 Family history of ischemic heart disease and other diseases of the circulatory system; F12.90 Cannabis use, unspecified, uncomplicated; E78.1 Pure hyperglyceridemia; R04.0 Epistaxis; R73.9 Hyperglycemia, unspecified; E66.9 Obesity, unspecified; I48.0 Paroxysmal atrial fibrillation; I12.9 Hypertensive chronic kidney disease with stage 1 through stage 4 chronic kidney disease, or unspecified chronic kidney disease
CPT/HCPCS: 31720; 36415; 36600; 71010; 71250; 80048; 80053; 80061; 80076; 81001; 82330; 82803; 82805; 82947; 82962; 83036; 83540; 83550; 83690; 83735; 84132; 84295; 84460; 84484; 85014; 85018; 85025; 85049; 85347; 85610; 85730; 86850; 86900; 86901; 86920; 87641; 93005; 93312; 93320; 93325; 93459; 93880; 94002; 94640; 94660; 94770; 96374; 99152; 99153; 99291; A9270-GY; C1725; C1751; C1760; C1769; C1894; J0690; J1644; J1940; J2150; J2250; J2370; J2405; J2440; J2720; J2765; J2795; J2930; J3010; J3475; J3480; P9045; P9047; Q9967

== ENCOUNTER 2017-03-03 20:02 | Inpatient (IN) | payer BC, MEDICARE ==
--- NOTE | ~2017-03-03 | HP ---
History And Physical [place] [id number] [facility] [place]. [address] NAME: ESTEVAN GONZALES : 51 STATUS : ADM IN [facility]#: [id number] AGE: 61 ADM/REG DATE : 03/03/17 MR#: [id number] REPORT SERV DATE: 03/04/17 DICTATED BY: ZAINAB YODER DATE: 03/03/17 REPORT STATUS : Draft TRANSCRIBED BY: MODL DATE: 03/03/17 DATE OF ADMISSION: 03/03/2017 CHIEF COMPLAINT: A 61-year-old male undergoing a CABG on 02/20/2017 under the care of Dr. Wilson, now presenting with increasing weakness, somnolence, confusion, and shortness of breath. HISTORY OF PRESENT ILLNESS: The patient's history was obtained through careful interview with the patient and , coupled with [facility]. The patient underwent a CABG on February 20 under the care of Dr. Wilson. He was able to be discharged on February 25 and was feeling actually quite well by that time. But over the last three days, he has had increasing lethargy, sleepiness, confusion, at times disorientation, and incoherence. He has had very poor energy, decreased appetite, but no nausea or vomiting. He describes shortness of breath characterized by dyspnea on exertion and then today he checked his oxygen at home, and it was 81% on room air. He has had chills, but no fevers. He has had night sweats, diaphoresis. He describes a cough productive of "a little" green sputum. He has had slight lightheadedness, dizziness, orthostatic symptoms. He has had 4 episodes of diarrhea in the last week but none today. No nausea or vomiting. He describes chest discomfort from his surgery, just a soreness in the anterior portion of his chest, 1/10 severity. He describes worsening of his chronic back pain, soreness and aching quality throughout his thoracic and lumbar spine as he describes it, 3/10 severity. REVIEW OF SYSTEMS: Otherwise, a 14-point review of systems was obtained and was negative. PAST MEDICAL HISTORY: 1. Coronary artery disease, status post CABG in February 2017. 2. Polio with post-polio syndrome. 3. Elevated triglycerides. 4. Congenital solitary kidney. 5. Chronic kidney disease, stage III. Baseline creatinine of 1.3 to 1.5. 6. Gastroesophageal reflux disorder. 7. Hypertension. 8. Postoperative pneumothorax earlier this month. 9. Hypothyroidism. 10.Depression. History And Physical [address] [address] NAME: ESTEVAN GONZALES : 51 STATUS : ADM IN PAT#: [id number] AGE: 61 ADM/REG DATE : 03/03/17 MR#: [id number] REPORT SERV DATE: 03/04/17 DICTATED BY: ZAINAB YODER DATE: 03/03/17 REPORT STATUS : Draft TRANSCRIBED BY: DI DATE: 03/03/17 11.Obstructive sleep apnea but not on CPAP. PAST SURGICAL HISTORY: 1. CABG 02/20/2017. 2. Polio surgeries with orthopedic procedures. 3. Skin cancers removed. 4. Carpal tunnel release. ALLERGIES: IV CONTRAST AND TEGRETOL. SOCIAL HISTORY: No tobacco abuse. No alcohol abuse. He is . The patient is disabled, gets around with electric wheelchair. 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 He has no children. FAMILY HISTORY: Mother and father with heart disease. Father at 67 years of age of cancer. CURRENT MEDICATIONS: Include amiodarone 200 mg p.o. daily, Norvasc 10 mg p.o. b.i.d., vitamin C, aspirin 81 mg p.o. daily, Lipitor 40 mg p.o. daily, Plavix 75 mg p.o. daily, Dexilant 60 mg p.o. daily, Valium 5 mg p.o. daily, Prozac 40 mg daily, Flonase, Lopressor 12.5 mg p.o. b.i.d., multivitamin, Percocet p.r.n., and nasal spray. PHYSICAL EXAMINATION: VITAL SIGNS: Temperature 98.2, pulse 67, blood pressure 129/74, respiratory rate 22, and O2 saturation 81% on room air. GENERAL: A pleasant, cooperative male, but he appears to be quite debilitated by his illness. He is in no evidence of distress, however. HEENT: Pupils equal, round, and reactive to light. No conjunctival pallor. No scleral icterus. Nares are patent. Oropharynx is clear of obstruction. Moist mucous membranes. NECK: Trachea midline. No thyromegaly. LYMPH: No cervical lymphadenopathy. No supraclavicular lymphadenopathy. RESPIRATORY: The patient has wet rales on examination that predominate. No wheezes, no rhonchi. Labored respiratory effort is noted. CARDIOVASCULAR: Regular rate and rhythm. The patient does have quite pronounced pericardial rub, but no murmurs, no gallop. The patient also has a bounding jugular venous distention going all the way up to his jaw line. He has bilateral pitting lower extremity edema symmetrically extending up to his thighs. ABDOMEN: Soft, seemed to be somewhat distended but no tympanic resonance on percussion. Nontender throughout. No hepatosplenomegaly. DERMATOLOGICAL: Warm and dry extremities. No pallor, no cyanosis. PSYCHIATRIC: Normal affect. Good mood. Alert and oriented x3. LABORATORY DATA: Brain natriuretic peptide 792, albumin 2.8. Liver enzymes within normal limits. Ammonia level 27. White blood cell count 16, hemoglobin 11, hematocrit 33, platelets 431. Sodium 137, potassium 4.1, chloride 105, bicarb 27, BUN 18, creatinine 1.23, glucose 94. Urinalysis negative for infection. ABG demonstrates pH 7.50, PaCO2 of 28, PaO2 of 61, and bicarb of 21 on room air. History And Physical [address] [address] NAME: ESTEVAN GONZALES : 51 STATUS : ADM IN [facility]#: [id number] AGE: 61 ADM/REG DATE : 03/03/17 MR#: [id number] REPORT SERV DATE: 03/04/17 DICTATED BY: ZAINAB YODER DATE: 03/03/17 REPORT STATUS : Draft TRANSCRIBED BY: MODL DATE: 03/03/17 STUDIES: 1. Chest x-ray by my own evaluation shows bilateral pleural effusions that are increasing, pulmonary edema, cardiomegaly, all increased compared to 02/25/2017. 2. EKG by my own evaluation shows sinus rhythm, no major abnormalities otherwise. 3. CT scan of the brain without contrast shows no acute intracranial process. ASSESSMENT AND PLAN: 1. Congestive heart failure exacerbation with volume overload, elevated brain natriuretic peptide. Check an echocardiogram to define function. It could be possible that patient has pericardial disease leading to heart failure symptoms, but we will monitor. Placed on IV diuretic, continue beta lucho. Evaluate for possible STEPHANIE inhibitor. Monitoring the patient's kidney function now. 2. Pericardial rub, rule out Mai's syndrome? Check ESR, check CRP, check an echocardiogram. Monitor patient's pericardial rub. The patient probably not a good candidate for colchicine because of chronic kidney disease, stage III with solitary kidney. We will try tapering dose of aspirin, but per literature, we will start at about 650 mg p.o. q.8 hours and then a tapering dose to see how patient responds to this. 3. Leukocytosis with bronchitis, possible sepsis syndrome? The patient has subjective chills, tachypnea, hypoxic respiratory failure, and white blood cell count of 16 with encephalopathy. Check procalcitonin. Because of severity of illness, we will cover with IV antibiotics for now including IV Levaquin and monitor closely. 4. Coronary artery disease, status post CABG on 02/20/2017. Consult Dr. Wilson for post CABG followup. 5. Post-polio syndrome with paraplegia but significant decreased physical function postoperatively. We will obtain a physical therapy evaluation. 6. Chronic kidney disease, stage III with solitary kidney. KPL/MODL Zainab Yoder M.D. / [id number] CC: Lani Lancaster D.O. James Zellner, M.D.
--- NOTE | ~2017-03-03 | DS ---
Discharge Summary [facility] [address] [place]. [address] NAME: ESTEVAN GONZALES : 51 STATUS : DIS IN PAT#: [id number] AGE: 61 ADM/REG DATE : 03/03/17 MR#: [id number] REPORT SERV DATE: 03/08/17 DICTATED BY: JR. BARKER WILLIAM JOHN DATE: 03/07/17 REPORT STATUS : Draft TRANSCRIBED BY: MODMartine DATE: 03/07/17 ADMISSION DATE: 03/03/2017 DISCHARGE DATE: 03/07/2017 DISCHARGE DIAGNOSES: Include. 1. 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 2. Chronic diastolic heart failure. 3. Coronary artery disease with bypass graft on 02/20/2017. 4. Chronic kidney disease, stage 2-3. 5. Post-polio syndrome. 6. Obstructive sleep apnea with a nocturnal desaturation study showing need for nocturnal oxygen. OPERATIONS, PROCEDURES, AND TREATMENTS: Include. 1. Nocturnal desaturation study done the evening of 03/05/2017 through 03/06/2017, which showed significant desaturation. Saturation index of 27.1, recommendation was minimum flow rate of 2 L/minute with sleep in an outpatient sleep study. 2. CT of the brain done 03/03/2017 which showed no acute intracranial abnormality with mild diffuse cortical volume loss compatible with chronic deep white matter ischemic change. 3. Chest x-ray done 03/03/2017 which showed bibasilar atelectasis with stable mild enlargement of cardiac silhouette. Nearly resolved soft tissue gas in the right and left chest wall. 4. Chest x-ray done 03/04/2017 with continued bilateral effusions and lower lobe atelectatic change. 5. PA and lateral chest x-ray done 03/05/2017, which showed improved aeration of the lungs. 6. Echocardiogram done 03/05/2017, which showed borderline left ventricular systolic function of 50%-55% with intact diastolic function. There was left atrial dilation, right ventricle function appeared mildly reduced. No significant valvular dysfunction. DISCHARGE MEDICATIONS: Include. 1. Norvasc 10 mg orally daily. 2. Aspirin 325 mg every eight hours through 03/09/2017; then 325 twice a day from 03/09/2017 through 03/16/2017 and 325 daily from 03/17/2017 through 03/23/2017 and 81 mg thereafter. 3. Lipitor 40 mg daily. 4. Amiodarone 200 mg orally daily. 5. Bumex 1 mg orally daily. 6. Plavix 75 mg orally daily. 7. Valium 5 mg orally daily. 8. Prozac 40 mg daily. 9. Multivitamin one tablet daily. 10.Metoprolol 12.5 mg orally twice a day. 11.Dexilant 60 mg orally daily. 12.Sodium chloride nasal spray daily. Discharge Summary [address] [address] NAME: ESTEVAN GONZALES : 51 STATUS : DIS IN PAT#: [id number] AGE: 61 ADM/REG DATE : 03/03/17 MR#: [id number] REPORT SERV DATE: 03/08/17 DICTATED BY: JR. BARKER WILLIAM JOHN DATE: 03/07/17 REPORT STATUS : Draft TRANSCRIBED BY: DI DATE: 03/07/17 13.Fluticasone nasal spray as needed. 14.Percocet 10/325 twice a day as needed. 15.Vitamin C 1000 mg daily. HOSPITAL COURSE: The patient was a 61-year-old white male, underwent a coronary artery bypass graft on 02/20/[address] Morse, who presented to the emergency room with weakness, somnolence, confusion, and shortness of breath. Over the prior 3 days, patient became increasingly lethargic, at times disoriented with decreased energy. The patient had desaturation down to 81% on room air. It is unclear whether this was at home or in the emergency room. He had chills, but no fever. He had a cough productive of "a little" green phlegm, slight lightheadedness. He had 4 episodes of diarrhea earlier in the week. On initial exam, temperature is 98.2, heart rate 67, blood pressure 129/74, respiratory rate 22, oxygen was 81% on room air. In general, he appeared ill. Lung exam showed wet rales on exam. Cardiovascular was regular rate and rhythm. He had a pronounced pericardial rub without murmur or gallop. He also had bounding jugular venous distention all the way up to the jaw, bilateral pitting lower extremity edema up through the hip. B-type natriuretic peptide was 792. Chest x-ray, as detailed above. The patient was admitted to [facility] with fluid overload possibly from Mai's syndrome. He did have an echocardiogram which did not show significant diastolic, systolic, or valvular dysfunction. He was placed on an aspirin taper per literature review by Dr. Abernathy. The patient was also placed on Bumex 1 mg IV twice a day with brisk diuresis and rapid improvement. He will be discharged home on Bumex 1 mg daily to continue this aspirin taper. The patient will follow up with his primary care provider in one week. He may actually not need diuretic after the fluid is diuresed and potential Mai syndrome is resolved. Regarding desaturation, patient had nocturnal desaturation study which showed significant desaturation qualifying him for 2 L oxygen by nasal cannula. This will be set up. Regarding weakness, patient has post-polio syndrome. He initially requested inpatient rehab then changed his mind and wanted to go home. The patient's was concerned, but agreeable. All questions were answered. The patient will be discharged home today 03/07/2017 in good condition with home oxygen. Will follow up with primary care provider in one week with a BMP. He will have home oxygen at 2 L/minute at night. For discharge exam and laboratory, please see daily progress note. This discharge took 32 minutes for patient encounter, coordination of care, and documentation. DISCHARGE DIET: 1.6 L fluid restriction. ACTIVITY: As tolerated. WJF/MODL Discharge Summary [facility] [address] [place]. [address] NAME: ESTEVAN GONZALES : 51 STATUS : DIS IN PAT#: [id number] AGE: 61 ADM/REG DATE : 03/03/17 MR#: [id number] REPORT SERV DATE: 03/08/17 DICTATED BY: JR. BARKER WILLIAM JOHN DATE: 03/07/17 REPORT STATUS : Draft TRANSCRIBED BY: MODL DATE: 03/07/17 Jaleel Barker Jr, MD / [id number] CC: Jaleel Barker Jr, MD Terri Brunvoll, D.O.
--- NOTE | ~2017-03-03 | PUL ---
[place] [address] [place]. [address] NAME: ESTEVAN GONZALES : 51 STATUS : ADM IN [facility]#: [id number] AGE: 61 ADM/REG DATE : 03/03/17 MR#: [id number] REPORT SERV DATE: 03/06/17 DICTATED BY: ROXANA KYE DATE: 03/06/17 REPORT STATUS : Draft TRANSCRIBED BY: MODL DATE: 03/06/17 PULMONARY FUNCTION TEST OVERNIGHT OXIMETRY REPORT Start date of testin03/05/2017. End date of testin03/06/2017. COMMENTS: Testing conducted with the patient breathing in room air. RESULTS: Total valid sampling time 6 hours 2 minutes and 45 seconds. Total time with an oxygen saturation less than 88%, 56 minutes and 4 seconds. Oxygen desaturation event index 27.1. IMPRESSION: There was significant desaturation during this study. Conducted while the patient was breathing in room air. The oxygen desaturation index is elevated suggestive of possible obstructive sleep apnea. Recommend supplemental oxygen at a minimum flow rate of 2 L/minute with sleep. Additionally, recommend formal sleep study to evaluate for sleep apnea if clinically indicated. PS/MODL Roxana Key M.D. / [id number] CC: Jaleel Barker Jr, MD Terri Brunvoll, D.O.
[2017-03-03 18:22] LABS: BE (BASE EXCESS) -1.1 MEQ/L (0 +/- 2.5); CARBOXYHEMOGLOBIN 1.4 % (0-3); HCO3 (ACTUAL BICARBONATE) 21.1 MEQ/L (23-27); HEMOBLOGIN CONTENT 11.3 G/DL (14-18); INSTRUMENT SERIAL # 8087; METHEMOGLOBIN 0.2 % (0-3); O2 CONTENT 14.3 VOL% (18-24); PCO2 (CO2 TENSION) 28 MMHG (35-45); PO2 (O2 TENSION) 61 MMHG (79-93)
[2017-03-03 18:23] LABS: ALLENS TEST Pos; SAMPLE Arterial
[2017-03-03 18:57] LABS: BASOPHILS 0.3 %; BASOPHILS ABSOLUTE 0.04 10/3/uL (0.0-0.16); EOSINOPHILS 3.7 %; EOSINOPHILS ABSOLUTE 0.59 10/3/uL (0.0-0.53); ER CBC TAT 0 Hrs 05 Mins; HEMATOCRIT 32.9 % (40.0-51.0); IMMATURE GRANULOCYTES 0.3 %; IMMATURE GRANULOCYTES ABSOLUTE 0.05 10/3/uL (0.0-0.11); LYMPHOCYTES 15.7 %; LYMPHOCYTES ABSOLUTE 2.51 10/3/uL (0.67-4.30); MEAN CORPUS HGB CONC 33.4 g/dL (32.0-36.0); MEAN CORPUSCULAR HEMOGLOB 31.6 pg (26.0-34.0); MEAN CORPUSCULAR VOLUME 94.5 fL (80-100); MEAN PLATELET VOLUME 8.5 fL (9.2-13.0); MONOCYTES 4.9 %; MONOCYTES ABSOLUTE 0.79 10/3/uL (0.21-1.20); NEUTROPHILS 75.1 %; RED CELL COUNT 3.48 10/6/uL (4.7-6.1)
[2017-03-03 18:58] LABS: MANUAL DIFF NO %; PLATELET COUNT 431 10/3/uL (150-400)
[2017-03-03 19:03] LABS: ASCORBIC ACID (UR NOT ORDER) NEG (NEG); BILIRUBIN, URINE NEGATIVE (NEG); ER URINALYSIS TAT 0 Hrs 00 Mins; KETONE, URINE NEGATIVE (NEG); LEUKOCYTE ESTERASE(NOT OR NEG (NEG); NITRITE (URINE) NEG (NEG); WBC (NOT ORDERED) (RFLEX) < 1 (0-5)
[2017-03-03 19:14] LABS: A/G RATIO 0.7 (0.7-1.9); ALBUMIN 2.8 G/DL (3.5-5.0); ALKALINE PHOSPHATASE 75 U/L (45-117); BUN (BLOOD UREA NITROGEN) 18 MG/DL (6-23); CALCIUM, SERUM 8.6 MG/DL (8.5-10.4); CHLORIDE, SERUM 105 MMOL/L (96-112); CO2 (CARBON DIOXIDE) 27 MMOL/L (24-34); CREATININE 1.23 MG/DL (0.70-1.30); GFR AFRICAN AMERICAN 72 ML/MIN (>=60); GFR NON AFRICAN AMERICAN 62 ML/MIN (>=60); GLOBULIN 4.1 G/DL (2.5-4.1); GLUCOSE, SERUM 94 MG/DL (60-99); POTASSIUM, SERUM 4.1 MMOL/L (3.5-5.3); SGOT(AST) 22 U/L (5-40); SGPT(ALT) 54 U/L (5-65); SODIUM, SERUM 137 MMOL/L (135-148); TOTAL BILIRUBIN 0.5 MG/DL (0-1.2); TOTAL PROTEIN 6.9 G/DL (6.0-8.5)
[~2017-03-03 20:02] MED LIST changes: +ADVIL PO; +ASAB PO; +CORDARONE PO; +FLONASE NAS; +LIPITOR40 PO; +LOP25 PO; +OCEAN NAS; +PERCOCET 10/3251 TAB PO; +PLAVIX PO; +VITC500 PO
[2017-03-04 05:38] LABS: BASOPHILS 0.3 %; BASOPHILS ABSOLUTE 0.04 10/3/uL (0.0-0.16); EOSINOPHILS 4.2 %; EOSINOPHILS ABSOLUTE 0.58 10/3/uL (0.0-0.53); HEMATOCRIT 32.1 % (40.0-51.0); HEMOGLOBIN 10.6 g/dL (13.6-17.8); IMMATURE GRANULOCYTES 0.4 %; IMMATURE GRANULOCYTES ABSOLUTE 0.05 10/3/uL (0.0-0.11); LYMPHOCYTES 15.2 %; MEAN CORPUSCULAR HEMOGLOB 31.1 pg (26.0-34.0); MEAN CORPUSCULAR VOLUME 94.1 fL (80-100); MEAN PLATELET VOLUME 8.4 fL (9.2-13.0); MONOCYTES 5.8 %; NEUTROPHILS 74.1 %; NEUTROPHILS ABSOLUTE 10.28 10/3/uL (2.02-8.40); PLATELET COUNT 419 10/3/uL (150-400); RBC DISTRIBUTION WIDTH 14.8 % (12.0-16.0); RED CELL COUNT 3.41 10/6/uL (4.7-6.1); WHITE BLOOD CELLS 13.9 10/3/uL (4.5-10.5)
[2017-03-04 05:41] LABS: MANUAL DIFF NO %
[2017-03-04 05:45] LABS: INTERNATIONAL NORMAL RATI 1.3 UNITS (-); PARTIAL THROMBO TIME 32.9 SEC (22.5-37.2); PROTIME (NOT ORD) 15.9 SEC (12.0-14.5)
[2017-03-04 06:01] LABS: A/G RATIO 0.6 (0.7-1.9); ALBUMIN 2.4 G/DL (3.5-5.0); ALKALINE PHOSPHATASE 70 U/L (45-117); BUN (BLOOD UREA NITROGEN) 18 MG/DL (6-23); C-REACTIVE PROTEIN 47.2 MG/L (<8.0); CALCIUM, SERUM 8.5 MG/DL (8.5-10.4); CHLORIDE, SERUM 108 MMOL/L (96-112); CO2 (CARBON DIOXIDE) 26 MMOL/L (24-34); CPK 96 U/L (0-200); CREATININE 1.21 MG/DL (0.70-1.30); GFR AFRICAN AMERICAN 73 ML/MIN (>=60); GFR NON AFRICAN AMERICAN 63 ML/MIN (>=60); GLOBULIN 3.9 G/DL (2.5-4.1); GLUCOSE, SERUM 94 MG/DL (60-99); POTASSIUM, SERUM 3.7 MMOL/L (3.5-5.3); SGOT(AST) 18 U/L (5-40); SGPT(ALT) 43 U/L (5-65); SODIUM, SERUM 142 MMOL/L (135-148); TOTAL BILIRUBIN 0.5 MG/DL (0-1.2); TOTAL PROTEIN 6.3 G/DL (6.0-8.5); TROPONIN I 0.04 NG/ML (<0.05)
[2017-03-04 06:27] LABS: CK-MB 1.9 NG/ML
[2017-03-04 06:42] LABS: SED RATE 58 MM/HR (0-15)
[2017-03-05 04:57] LABS: BASOPHILS 0.5 %; BASOPHILS ABSOLUTE 0.07 10/3/uL (0.0-0.16); EOSINOPHILS 4.8 %; EOSINOPHILS ABSOLUTE 0.72 10/3/uL (0.0-0.53); HEMATOCRIT 31.9 % (40.0-51.0); HEMOGLOBIN 10.6 g/dL (13.6-17.8); IMMATURE GRANULOCYTES 0.3 %; IMMATURE GRANULOCYTES ABSOLUTE 0.05 10/3/uL (0.0-0.11); LYMPHOCYTES 15.6 %; LYMPHOCYTES ABSOLUTE 2.32 10/3/uL (0.67-4.30); MANUAL DIFF NO %; MEAN CORPUS HGB CONC 33.2 g/dL (32.0-36.0); MEAN CORPUSCULAR HEMOGLOB 31.1 pg (26.0-34.0); MEAN CORPUSCULAR VOLUME 93.5 fL (80-100); MEAN PLATELET VOLUME 8.4 fL (9.2-13.0); MONOCYTES 6.1 %; MONOCYTES ABSOLUTE 0.91 10/3/uL (0.21-1.20); NEUTROPHILS 72.7 %; NEUTROPHILS ABSOLUTE 10.78 10/3/uL (2.02-8.40); PLATELET COUNT 446 10/3/uL (150-400); RBC DISTRIBUTION WIDTH 14.6 % (12.0-16.0); RED CELL COUNT 3.41 10/6/uL (4.7-6.1); WHITE BLOOD CELLS 14.9 10/3/uL (4.5-10.5)
[2017-03-05 05:06] LABS: BUN (BLOOD UREA NITROGEN) 21 MG/DL (6-23); CALCIUM, SERUM 8.6 MG/DL (8.5-10.4); CHLORIDE, SERUM 108 MMOL/L (96-112); CO2 (CARBON DIOXIDE) 26 MMOL/L (24-34); CREATININE 1.43 MG/DL (0.70-1.30); GFR AFRICAN AMERICAN 60 ML/MIN (>=60); GFR NON AFRICAN AMERICAN 52 ML/MIN (>=60); GLUCOSE, SERUM 98 MG/DL (60-99); POTASSIUM, SERUM 3.7 MMOL/L (3.5-5.3); SODIUM, SERUM 143 MMOL/L (135-148)
[2017-03-06 06:51] LABS: BASOPHILS 0.3 %; BASOPHILS ABSOLUTE 0.05 10/3/uL (0.0-0.16); EOSINOPHILS 5.1 %; HEMATOCRIT 35.7 % (40.0-51.0); HEMOGLOBIN 11.8 g/dL (13.6-17.8); IMMATURE GRANULOCYTES 0.4 %; IMMATURE GRANULOCYTES ABSOLUTE 0.06 10/3/uL (0.0-0.11); LYMPHOCYTES 14.1 %; LYMPHOCYTES ABSOLUTE 2.23 10/3/uL (0.67-4.30); MEAN CORPUS HGB CONC 33.1 g/dL (32.0-36.0); MEAN CORPUSCULAR HEMOGLOB 31.4 pg (26.0-34.0); MEAN CORPUSCULAR VOLUME 94.9 fL (80-100); MEAN PLATELET VOLUME 8.4 fL (9.2-13.0); MONOCYTES 5.3 %; MONOCYTES ABSOLUTE 0.84 10/3/uL (0.21-1.20); NEUTROPHILS 74.8 %; NEUTROPHILS ABSOLUTE 11.82 10/3/uL (2.02-8.40); PLATELET COUNT 514 10/3/uL (150-400); RBC DISTRIBUTION WIDTH 14.7 % (12.0-16.0); RED CELL COUNT 3.76 10/6/uL (4.7-6.1); WHITE BLOOD CELLS 15.8 10/3/uL (4.5-10.5)
[2017-03-06 06:52] LABS: MANUAL DIFF NO %
[2017-03-06 07:05] LABS: BUN (BLOOD UREA NITROGEN) 23 MG/DL (6-23); CALCIUM, SERUM 8.8 MG/DL (8.5-10.4); CHLORIDE, SERUM 111 MMOL/L (96-112); CO2 (CARBON DIOXIDE) 26 MMOL/L (24-34); CREATININE 1.46 MG/DL (0.70-1.30); GFR AFRICAN AMERICAN 58 ML/MIN (>=60); GFR NON AFRICAN AMERICAN 50 ML/MIN (>=60); GLUCOSE, SERUM 105 MG/DL (60-99); SODIUM, SERUM 144 MMOL/L (135-148)
[2017-03-07 05:15] LABS: BUN (BLOOD UREA NITROGEN) 24 MG/DL (6-23); CALCIUM, SERUM 9.3 MG/DL (8.5-10.4); CHLORIDE, SERUM 108 MMOL/L (96-112); CO2 (CARBON DIOXIDE) 25 MMOL/L (24-34); CREATININE 1.42 MG/DL (0.70-1.30); GFR AFRICAN AMERICAN 60 ML/MIN (>=60); GFR NON AFRICAN AMERICAN 52 ML/MIN (>=60); GLUCOSE, SERUM 94 MG/DL (60-99); SODIUM, SERUM 143 MMOL/L (135-148)
[2017-03-07] MEDS ORDERED: ASA5GR PO ×3 (16:07→16:09)
[2017-03-07] MEDS ORDERED: BUM1 PO (16:09)
[2017-03-07] MEDS ORDERED: ASAB PO (16:09)
== END 2017-03-07 18:10 | disposition home or self-care (01) | DRG 314 ==
LOC: ER 20:02 → 5NO 20:05
PROVIDERS: Emergency Medicine; Hospitalist; Internal Medicine
DX: I97.0 Postcardiotomy syndrome (principal); J96.01 Acute respiratory failure with hypoxia; I13.0 Hypertensive heart and chronic kidney disease with heart failure and stage 1 through stage 4 chronic kidney disease, or unspecified chronic kidney disease; G82.20 Paraplegia, unspecified; I97.130 Postprocedural heart failure following cardiac surgery; Q60.0 Renal agenesis, unilateral; I50.32 Chronic diastolic (congestive) heart failure; N18.3 Chronic kidney disease, stage 3 (moderate); Z95.1 Presence of aortocoronary bypass graft; I25.10 Atherosclerotic heart disease of native coronary artery without angina pectoris; E03.9 Hypothyroidism, unspecified; F32.9 Major depressive disorder, single episode, unspecified; G47.33 Obstructive sleep apnea (adult) (pediatric); K21.9 Gastro-esophageal reflux disease without esophagitis; Z79.82 Long term (current) use of aspirin; Z79.02 Long term (current) use of antithrombotics/antiplatelets; B91 Sequelae of poliomyelitis
CPT/HCPCS: 36600; 70450; 71010; 71020; 80048; 80053; 81001; 82140; 82550; 82553; 82805; 82962; 83735; 83880; 84443; 84484; 85025; 85610; 85652; 85730; 86140; 93005; 93306; 94762; 97110-GP; 97116-GP; 97162-GP; 99285; A9270-GY; J1956

== ENCOUNTER 2017-03-09 20:01 | Inpatient (IN) | payer BC ==
--- NOTE | ~2017-03-09 | HP ---
History And Physical [id number] [place]. [address] NAME: ESTEVAN GONZALES : 51 STATUS : ADM IN [facility]#: [id number] AGE: 61 ADM/REG DATE : 03/09/17 MR#: [id number] REPORT SERV DATE: 03/10/17 DICTATED BY: MICHELLE GIVENS DATE: 03/10/17 REPORT STATUS : Draft TRANSCRIBED BY: MODL DATE: 03/10/17 DATE OF ADMISSION: 03/09/2017 CHIEF COMPLAINT: Swelling and warmth of right lower extremity with fever. HISTORY OF PRESENT ILLNESS: This is a pleasant 61-year-old male with a history of coronary artery disease status post coronary artery bypass grafting of five vessels with right lower extremity venous harvest on 02/20/[address] Wilson. He also has a history of polio with post-polio syndrome, tobacco abuse, and frequent bronchitis. The patient has been at home since he was discharged and doing well, but he called our office yesterday evening with complaints of right lower extremity swelling and warmth and also said that he had been having a fever greater than 101 degrees. The patient was asked to come to the hospital for what was anticipated to be an infection of his right lower extremity and concern for possible sepsis. PAST MEDICAL HISTORY: Polio with post-polio syndrome, coronary artery disease status post CABG x5, high blood pressure, hyperlipidemia, GERD, irritable bowel syndrome, solitary kidney since . PAST SURGICAL HISTORY: Recent coronary bypass grafting as above, carpal tunnel release, excision of skin lesions, prior orthopedic surgeries due to history of polio. FAMILY HISTORY: Family history of coronary artery disease and hyperlipidemia. 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 He denies any alcohol abuse, history of tobacco abuse, and says that he does smoke marijuana on a daily basis. ALLERGIES: ALLERGIC TO CONTRAST MEDIA, TEGRETOL AND PRIOR INTOLERANCE TO STATINS. HOME MEDICATIONS: Amiodarone 200 mg per day, amlodipine 10 mg twice a day, vitamin C 1000 mg p.o. twice a day, aspirin 325 mg p.o. q.8 hours, Lipitor 40 mg p.o. at bedtime, Bumex 1 mg p.o. daily, Plavix 75 mg p.o. daily, Dexilant 60 mg p.o. daily, Valium 5 mg p.o. at bedtime, Prozac 40 mg at bedtime, Flonase two sprays nasally daily, metoprolol 12.5 mg p.o. twice a day, multivitamin one tab p.o. daily, nasal spray one spray in each nostril daily, oxycodone 5/325 p.o. twice a day as needed. REVIEW OF SYSTEMS: A 10-point review of systems was obtained and is negative other than in HPI. PHYSICAL EXAMINATION: VITAL SIGNS: Temperature 98.7, heart rate 95, blood pressure 131/64, respiratory rate 18, and O2 saturation 96% on 2 L. GENERAL: Pleasant, male, in no acute distress. NEUROLOGIC: Alert and oriented x3. Pupils are equal, round, reactive to light and accommodation. He has diminished strength in both lower extremities. Painful movement of right lower extremity. History And Physical [address] [address] NAME: ESTEVAN GONZALES : 51 STATUS : ADM IN [facility]#: [id number] AGE: 61 ADM/REG DATE : 03/09/17 MR#: [id number] REPORT SERV DATE: 03/10/17 DICTATED BY: MICHELLE GIVENS DATE: 03/10/17 REPORT STATUS : Draft TRANSCRIBED BY: DI DATE: 03/10/17 HEENT: Head is normocephalic and atraumatic. Sclerae clear. Nose is midline with no abnormality. Teeth with no abnormalities. CARDIAC: S1, S2 with no murmurs, rubs, or gallops. LUNGS: Clear to auscultation bilaterally with normal effort. ABDOMEN: Soft, obese, and nontender with active bowel sounds. EXTREMITIES: Free of cyanosis or clubbing. He does have a 1+ edema to right lower extremity distal to right knee. Right lower extremity is also warm to the touch, distal to the knee and very tender to the touch. INCISIONS: Sternal incision is dry and intact, appears to be healing well. Chest tube incisions are also dry and intact and healing well. LVH incision is intact, appeared to be well healed. No oozing or dehiscence. LABORATORY DATA: White blood cell count 29.7, hemoglobin 11.5, hematocrit 33, platelets 484. Sodium 143, potassium 4.0, chloride 108, bicarbonate 25, BUN 24, creatinine 1.4 which is his baseline, and glucose 94. IMAGING: Chest PA and lateral on 03/10/2017 showed pulmonary venous congestion with small bilateral pleural effusion. Heart size is normal with sternotomy noted. ASSESSMENT AND PLAN: This is a pleasant 61-year-old male with a history of coronary artery disease status post coronary bypass grafting just over two weeks ago, was brought in for concerns of right lower extremity infection and possible sepsis with leukocytosis and fever. The patient was started on IV vancomycin yesterday. We will continue him on this for now and continue to evaluate whether he will need surgical intervention for this. MARIO/MODMartine Michelle Givens NP / [id number] CC: Lani Childers D.O.
--- NOTE | ~2017-03-09 | DS ---
Discharge Summary [facility] [address] [place]. [address] NAME: ESTEVAN GONZALES : 51 STATUS : DIS IN PAT#: [id number] AGE: 61 ADM/REG DATE : 03/09/17 MR#: [id number] REPORT SERV DATE: 04/02/17 DICTATED BY: MILENA WILSON DATE: 03/30/17 REPORT STATUS : Draft TRANSCRIBED BY: DI DATE: 03/30/17 Data Collection from hospitalization DISCHARGE DIAGNOSES: 3.1. CONSULTATIONS: Dr. Jim Maurice. PROCEDURES PERFORMED: 1. Incision and drainage of right lower extremity and leg infection, 03/15/2017. 2. Venous Doppler ultrasound of the right lower extremity, 03/13/2017. DISCHARGE MEDICATIONS: Aspirin 81 mg daily, Lipitor 40 mg at bedtime, Cordarone 200 mg daily, Bumex 1 mg every morning, Plavix 75 mg daily, Valium 5 mg at bedtime, Zyvox 600 mg twice a day, multivitamins one tablet daily, Lopressor 12.5 mg twice a day, Dexilant 60 mg daily, Flonase nasal spray two sprays nasally daily as needed, Stanley nasal spray one spray nasally daily as needed, Percocet 10/325 half to one tablet twice a day as needed, Prozac 40 mg at bedtime. CONDITION AT DISCHARGE: Stable. DISPOSITION: The patient was discharged to [facility] on an 1800- calorie cardiac/diabetic diet. HOSPITAL COURSE: This is a 61-year-old man who has a history of coronary artery disease and is status post coronary artery bypass grafting of five vessels with right lower extremity venous harvest on 02/20/2017. He also has a history of polio with post-polio syndrome, tobacco abuse, and frequent bronchitis. He had been at home since he was discharged and was doing well, but he called our office on the evening prior to this admission with complaints of right lower extremity swelling and warmth, and he also said he had been having a fever greater than 101. He was asked to come to the hospital for what was anticipated to be an infection of the right lower extremity and there was a concern for possible sepsis. He was admitted to the hospital at this time for further evaluation and treatment. Upon admission, chest x-ray showed pulmonary venous congestion with small bilateral pleural effusions. Heart size was normal. White blood cell count was 29.7. Creatinine was 1.4 which is his baseline. IV vancomycin had been started. The patient was seen in consultation by Dr. Jim Maurice regarding right leg cellulitis. His highest temperature over the past 24 hours had been 100.6. He had had some hypotension. He was on 2 L of oxygen. White count had decreased to 21. At the time of this consult, Zosyn had been added. The main concern was for right calf infection of the former saphenous vein tract versus an infected hematoma. Imaging was suggested for this area to observe for any abscess. Obviously, there was some degree of cellulitis. There was a small amount of drainage at the lower stitch about the right ankle, but we could not prove any extension to the vein harvest site. The leg was going to be kept elevated. He was receiving vancomycin and Zosyn. The Zosyn was changed to cefepime. The following day, the right lower extremity appeared to be improving, but was still very tender to touch. He had a low-grade fever. White blood cell count was improving. On 03/12/2017, the O2 saturation was 98% on 2 L. His T-max was 101.4. White blood cell count was decreasing and was now 16.5. IV antibiotics Discharge Summary [address] [address] NAME: ESTEVAN GONZALES : 51 STATUS : DIS IN PAT#: [id number] AGE: 61 ADM/REG DATE : 03/09/17 MR#: [id number] REPORT SERV DATE: 04/02/17 DICTATED BY: MILENA WILSON DATE: 03/30/17 REPORT STATUS : Draft TRANSCRIBED BY: MODMartine DATE: 03/30/17 were continued. We suspected infection along the previous vein tract, an ultrasound was requested. His T-max was 101.4. On 03/13/2017, the patient stated his leg was feeling a lot better. The right lower extremity appearance had changed little, but there was less warmth to palpation and it was much less tender. He was felt to be clinically improving. Venous Doppler ultrasound of the right lower extremity was performed. The area of the greater saphenous vein harvest in the right calf exhibited heterogeneous echotexture within the harvest site, this could represent abscess or hematoma. On 03/14/2017, there was still increased lividity in the right leg. The patient said he was able to bear weight on the right leg. We were considering aspirating the right calf area of swelling. His T-max was 100. It was felt that this would need drainage. On 03/15/2017, he was taken to the operating room where he underwent the above-mentioned procedure. He tolerated this well and there were no complications. White blood cell count was 17. A drain was left in place. We encouraged him to mobilize. The following day, his cultures had revealed MRSA. He was felt to have had an MRSA right calf abscess of the previous vein harvest site. The patient was going to be placed on Zyvox and Prozac would be held while on Zyvox. On the 03/17/2017, the Johnny drain remained in place, his antibiotics were continued. On the 03/18/2017, he was afebrile, he denied any side effect from the Zyvox, his lungs were clear. The patient said he could not flex his ankle all the way, but he could step up on the heel. He did have a bowel movement. His right calf erythema had decreased. There was still some swelling. On 03/21/2017, the patient said his leg was feeling better. The Johnny drain remained in place. He had no side effects from his antibiotics. He was evaluated by Physical Therapy. Over the next couple of days, he remained afebrile. Discharge planning was performed. Creatinine was 1.3. On 03/23/2017, he continued to improve daily with mobility. The right leg was not excessively swollen. He was afebrile. It was felt that he would need senior care facility placement. Discharge instructions were given. Due to his improved and stable condition, he was discharged to [facility] with the above- stated instructions. Information collected by: Ashley Elmore I submit the above information as my discharge summary. OLENA/DI Milena Wilson M.D. / [id number] CC: Milena Steve, Kolton Veloz M.D. [facility]
--- NOTE | ~2017-03-09 | OP ---
Record Of Operation [facility] [address] [place] [place]. [address] NAME: ESTEVAN GONZALES : 51 STATUS : DIS IN PAT#: [id number] AGE: 61 ADM/REG DATE : 03/09/17 MR#: [id number] REPORT SERV DATE: 03/23/17 DICTATED BY: SALAS WILSON DATE: 03/23/17 REPORT STATUS : Draft TRANSCRIBED BY: MODMartine DATE: 03/23/17 DATE OF PROCEDURE: 03/15/2017 PREPROCEDURAL DIAGNOSES: 1. Right lower extremity saphenous vein graft harvest site infection, status post coronary artery bypass grafting. 2. History of polio. 3. Chronic kidney disease. POSTOPERATIVE DIAGNOSES: 1. Right lower extremity saphenous vein graft harvest site infection, status post coronary artery bypass grafting. 2. History of polio. 3. Chronic kidney disease. PROCEDURE PERFORMED: Incision and drainage of right lower extremity and leg infection. LIQUOR RUNNER: Chepe. ANESTHESIA: General. INDICATIONS: Mr. Gonzales is a 61-year-old gentleman who underwent bypass surgery by us on 02/20. He was discharged to home. He has lower extremity weakness on the right side and has paralysis to the left lower extremity. He had been getting around at home, but noticed increasing soreness of the saphenous vein graft harvest site in the right lower extremity below the knee. He did have a spiked fever at home. He came in our office prior to this and was placed on oral antibiotics for cellulitis of the right lower extremity. He re- presented and called and was admitted to the hospital on the with right lower extremity infection. He was placed on antibiotic therapy in the hospital and defervesced nicely. He was not bacteremic. The saphenous vein graft track was erythematous, tender to touch, and indurated. It developed fluctuance over the next two days and I felt that the patient should have this area drained. This was discussed with the patient, he wished to proceed. FINDINGS AT OPERATION: 1. There is purulent fluid within this tract. This fluid had been cultured by Dr. Maurice two days ago. There was old blood loss all along the track. 2. We did lavage this area out with 3 L of saline during the procedure. PATHOLOGIC SPECIMENS: None. DESCRIPTION OF PROCEDURE: The patient was brought to the operating suite and the airway was secured with an LMA. Lines secured by Anesthesia and the right lower extremity prepped and draped sterilely. About a 1 cm incision made over the most fluctuant area of the leg and this was carried down to the area of fluctuance, where purulent fluid was obtained. We milked the purulent fluid from this incision and along with the old clot along the vein graft harvest track. Once this was completed, the wound was irrigated copiously with Record Of Operation [address] [address] NAME: ESTEVAN GONZALES : 51 STATUS : DIS IN PAT#: [id number] AGE: 61 ADM/REG DATE : 03/09/17 MR#: [id number] REPORT SERV DATE: 03/23/17 DICTATED BY: SALAS WILSON DATE: 03/23/17 REPORT STATUS : Draft TRANSCRIBED BY: DI DATE: 03/23/17 sterile saline using pulse lavage. Then, hemostasis was obtained. A 19 mm CHARLEEN drain was placed along the track and brought through a separate stab incision. Wound was then dressed in layers with gauze. The patient tolerated the procedure well with no complications. Sponge and needle counts were correct. DISPOSITION: The patient was taken to the recovery room in stable condition. TOMAS/DI Salas Wilosn M.D. / [id number] CC: Lani Childers D.O.
--- NOTE | ~2017-03-09 | CN ---
Consultation Report [facility] [address] [place]. [address] NAME: ESTEVAN GONZALES : 51 STATUS : ADM IN [facility]#: [id number] AGE: 61 ADM/REG DATE : 03/09/17 MR#: [id number] REPORT SERV DATE: 03/11/17 DICTATED BY: JIM HILL DATE: 03/11/17 REPORT STATUS : Draft TRANSCRIBED BY: MODL DATE: 03/11/17 INFECTIOUS DISEASE CONSULT DATE OF CONSULTATION: REASON FOR CONSULT: Right leg cellulitis. HISTORY OF PRESENT ILLNESS: 61-year-old white male with history of coronary artery disease, status post CABG on 02/20/2017, hypertension, chronic kidney disease, hypothyroidism, solitary kidney, history of poliomyelitis, who was admitted for right lower leg pain, fever, and leukocytosis. On 02/20/2017, he had a five-vessel coronary artery bypass with saphenous vein harvested from the right leg. There is some postop pneumothorax. He was discharged on 02/25/2017. He was readmitted on 03/03/2017 with dyspnea on exertion related to him having to move in and out of the chair. His left lower leg paralysis is due to polio. According to the chart, he also had some confusion, weakness, and night sweats. He was thought to have CHF, so he was diuresed. For unclear reason, he was given Ancef on admission followed by [place]. An echocardiogram showed a good left ventricular ejection fraction. He was discharged on 03/07/2017. The patient states that for about six days, he has had some discoloration of the skin and swelling or tightness in the right calf, but after going home, he noticed pain in the leg especially when he puts pressure or stood on it. Apparently, he has also had a fever and on admission, [place] [address]. He was started on IV vancomycin. Blood cultures on admission were negative. Other lab work showed a creatinine of 1.4, hemoglobin 11, segments 85%, bands 5%. Chest x-ray with small bilateral effusions. ID consult was requested today for this right calf cellulitis. The highest temperature over the last 24 hours is 100.6. He then had hypotension. He is on 2 L of oxygen. WBC is down to 21, hemoglobin decreased from 11 to 9.8. Zosyn was added today. According to the patient, he has some chronic problems with some difficulty urinating. This sounds like there may be some ureteral stricture or enlarged prostate, but there is nothing acute, no dysuria, a little bit of coughing. No worsening of his shortness of breath. He has a chronic intermittent diarrhea. No abdominal pain. No decubitus. PAST MEDICAL HISTORY: As I mentioned above plus problems with carpal tunnel. ALLERGIES: NONE TO ANTIBIOTICS. LISTED ARE IV CONTRAST CAUSING RASH AND CARBAMAZEPINE CAUSING SWELLING AND RASH. MEDICATIONS ON ADMISSION: Amiodarone, amlodipine, vitamin C, aspirin on a taper down regimen, Lipitor, Bumex, Plavix, dexlansoprazole, diazepam at bedtime, fluoxetine at bedtime, fluticasone, metoprolol, multivitamin, p.r.n. Percocet. Consultation Report [place] [id number] [facility] [place]. [address] NAME: ESTEVAN GONZALES : 51 STATUS : ADM IN [facility]#: [id number] AGE: 61 ADM/REG DATE : 03/09/17 MR#: [id number] REPORT SERV DATE: 03/11/17 DICTATED BY: JIM HILL DATE: 03/11/17 REPORT STATUS : Draft TRANSCRIBED BY: DI DATE: 03/11/17 SOCIAL HISTORY: He is disabled. . Does not smoke. He is retired. FAMILY HISTORY: Heart disease and cancer. PHYSICAL EXAMINATION: GENERAL: He is alert, not in distress. He has baldness. HEENT: Sclerae are white. No oral thrush. LUNGS: Mildly decreased sounds. No wheezes, rhonchi, or rales. HEART: Regular rhythm. Maybe a pericardial rub versus pleural rub. CHEST: Surgical incision is healed. No inflammation. ABDOMEN: Nontender to palpation. SKIN: Without obvious rash. Left lower leg has atrophic musculature. Right calf has a slight dark red discoloration and is tight, swollen, more so on the anteromedial calf where the vein harvest site is. There are three stitches, one at popliteal area, one at the mid calf, and one above the ankle. There is a little moisture and a drop of pus at the lowest stitch. I could not milk any purulence from the previous venous tract. The areas of swelling are more prominent again on the anteromedial calf kind of between the upper and the middle stitch. ASSESSMENT AND PLAN: 1. Right calf pain, tightness and swelling. 2. Fever and leukocytosis. 3. Recent coronary artery bypass surgery on 02/20/2017 with right saphenous vein harvest. 4. History of poliomyelitis with left lower leg paralysis, history of solitary kidney, chronic kidney insufficiency, history of coronary artery disease, and hypertension. The main concern would be for the right calf infection of the former saphenous vein tract versus an infected hematoma suggest imaging this area for any abscess. Obviously, there is some degree of cellulitis as well. There is a small amount of drainage at the lower stitch above the right ankle, but I could not prove any extension to the vein harvest site. I asked the patient to keep the leg elevated and he is already on empiric antibiotics with vancomycin and Zosyn. I am going to change the Zosyn to cefepime. I discussed with the patient as well as Trey Gant who works with Dr. Mo. PC/MODL Jim Hill M.D. / [id number] CC: Salas Wilson M.D. Consultation Report [address] [place]. [address] NAME: ESTEVAN GONZALES : 51 STATUS : ADM IN [facility]#: [id number] AGE: 61 ADM/REG DATE : 03/09/17 MR#: [id number] REPORT SERV DATE: 03/11/17 DICTATED BY: JIM HILL DATE: 03/11/17 REPORT STATUS : Draft TRANSCRIBED BY: DI DATE: 03/11/17 Izzy Guadalupe D.O.
[~2017-03-09 20:01] MED LIST changes: +ASA5GR PO; +BUM1 PO
[2017-03-09] MEDS ORDERED: NEO-OINT15 TOP (21:48)
[2017-03-09] MEDS ORDERED: K500 PO (21:49)
[2017-03-09 22:19] LABS: HEMATOCRIT 34.9 % (40.0-51.0); HEMOGLOBIN 11.5 g/dL (13.6-17.8); MEAN CORPUSCULAR VOLUME 94.1 fL (80-100); MEAN PLATELET VOLUME 8.2 fL (9.2-13.0); PLATELET COUNT 484 10/3/uL (150-400); RBC DISTRIBUTION WIDTH 14.8 % (12.0-16.0); RED CELL COUNT 3.71 10/6/uL (4.7-6.1)
[2017-03-09 22:20] LABS: MANUAL DIFF YES %; WHITE BLOOD CELLS 29.7 10/3/uL (4.5-10.5)
[2017-03-09 22:28] LABS: BUN (BLOOD UREA NITROGEN) 23 MG/DL (6-23); CALCIUM, SERUM 8.8 MG/DL (8.5-10.4); CHLORIDE, SERUM 104 MMOL/L (96-112); CO2 (CARBON DIOXIDE) 26 MMOL/L (24-34); CREATININE 1.58 MG/DL (0.70-1.30); GFR AFRICAN AMERICAN 53 ML/MIN (>=60); GFR NON AFRICAN AMERICAN 46 ML/MIN (>=60); GLUCOSE, SERUM 111 MG/DL (60-99); POTASSIUM, SERUM 3.5 MMOL/L (3.5-5.3); SODIUM, SERUM 138 MMOL/L (135-148)
[2017-03-09 22:38] LABS: BAND NEUTROPHILS 5 %; LYMPHOCYTES 8 %; LYMPHOCYTES ABSOLUTE (CALC) 2.38 10/3/uL (0.67-4.30); MONOCYTES 2 %; MONOCYTES ABSOLUTE (CALC) 0.59 10/3/uL (0.21-1.20); NEUTROPHILS ABSOLUTE (CALC) 26.73 10/3/uL (2.02-8.40); PLATELET ESTIMATE SLT INC (ADEQUATE); SEGMENTED NEUTROPHIL (0) 85 %; TOTAL NUCLEATED CELLS 100
[2017-03-11 05:29] LABS: BASOPHILS 0.2 %; BASOPHILS ABSOLUTE 0.05 10/3/uL (0.0-0.16); EOSINOPHILS 1.8 %; EOSINOPHILS ABSOLUTE 0.39 10/3/uL (0.0-0.53); HEMATOCRIT 29.2 % (40.0-51.0); HEMOGLOBIN 9.8 g/dL (13.6-17.8); IMMATURE GRANULOCYTES 0.3 %; IMMATURE GRANULOCYTES ABSOLUTE 0.07 10/3/uL (0.0-0.11); LYMPHOCYTES 7.1 %; LYMPHOCYTES ABSOLUTE 1.51 10/3/uL (0.67-4.30); MANUAL DIFF NO %; MEAN CORPUS HGB CONC 33.6 g/dL (32.0-36.0); MEAN CORPUSCULAR HEMOGLOB 31.6 pg (26.0-34.0); MEAN CORPUSCULAR VOLUME 94.2 fL (80-100); MEAN PLATELET VOLUME 8.5 fL (9.2-13.0); MONOCYTES 6.7 %; MONOCYTES ABSOLUTE 1.43 10/3/uL (0.21-1.20); NEUTROPHILS 83.9 %; NEUTROPHILS ABSOLUTE 17.75 10/3/uL (2.02-8.40); PLATELET COUNT 443 10/3/uL (150-400); RBC DISTRIBUTION WIDTH 14.8 % (12.0-16.0); WHITE BLOOD CELLS 21.2 10/3/uL (4.5-10.5)
[2017-03-11 05:35] LABS: CALCIUM, SERUM 8.5 MG/DL (8.5-10.4); CHLORIDE, SERUM 106 MMOL/L (96-112); CO2 (CARBON DIOXIDE) 24 MMOL/L (24-34); CREATININE 1.28 MG/DL (0.70-1.30); GFR AFRICAN AMERICAN 69 ML/MIN (>=60); GFR NON AFRICAN AMERICAN 59 ML/MIN (>=60); GLUCOSE, SERUM 101 MG/DL (60-99); POTASSIUM, SERUM 3.6 MMOL/L (3.5-5.3); SODIUM, SERUM 141 MMOL/L (135-148)
[2017-03-11 05:36] LABS: BUN (BLOOD UREA NITROGEN) 17 MG/DL (6-23)
[2017-03-12 05:34] LABS: BASOPHILS 0.3 %; BASOPHILS ABSOLUTE 0.05 10/3/uL (0.0-0.16); EOSINOPHILS 3.3 %; EOSINOPHILS ABSOLUTE 0.55 10/3/uL (0.0-0.53); HEMOGLOBIN 9.5 g/dL (13.6-17.8); IMMATURE GRANULOCYTES 0.3 %; IMMATURE GRANULOCYTES ABSOLUTE 0.05 10/3/uL (0.0-0.11); LYMPHOCYTES 11.8 %; LYMPHOCYTES ABSOLUTE 1.94 10/3/uL (0.67-4.30); MANUAL DIFF NO %; MEAN CORPUS HGB CONC 32.8 g/dL (32.0-36.0); MEAN CORPUSCULAR HEMOGLOB 30.7 pg (26.0-34.0); MEAN CORPUSCULAR VOLUME 93.9 fL (80-100); MEAN PLATELET VOLUME 8.5 fL (9.2-13.0); MONOCYTES ABSOLUTE 0.82 10/3/uL (0.21-1.20); NEUTROPHILS 79.3 %; NEUTROPHILS ABSOLUTE 13.07 10/3/uL (2.02-8.40); PLATELET COUNT 441 10/3/uL (150-400); RBC DISTRIBUTION WIDTH 14.8 % (12.0-16.0); RED CELL COUNT 3.09 10/6/uL (4.7-6.1); WHITE BLOOD CELLS 16.5 10/3/uL (4.5-10.5)
[2017-03-12 05:50] LABS: BUN (BLOOD UREA NITROGEN) 15 MG/DL (6-23); CALCIUM, SERUM 8.5 MG/DL (8.5-10.4); CHLORIDE, SERUM 111 MMOL/L (96-112); CO2 (CARBON DIOXIDE) 26 MMOL/L (24-34); CREATININE 1.17 MG/DL (0.70-1.30); GFR AFRICAN AMERICAN 76 ML/MIN (>=60); GFR NON AFRICAN AMERICAN 66 ML/MIN (>=60); GLUCOSE, SERUM 103 MG/DL (60-99); POTASSIUM, SERUM 3.3 MMOL/L (3.5-5.3); SODIUM, SERUM 136 MMOL/L (135-148)
[2017-03-13 05:52] LABS: BUN (BLOOD UREA NITROGEN) 15 MG/DL (6-23); CALCIUM, SERUM 8.7 MG/DL (8.5-10.4); CHLORIDE, SERUM 107 MMOL/L (96-112); CO2 (CARBON DIOXIDE) 28 MMOL/L (24-34); CREATININE 1.12 MG/DL (0.70-1.30); GFR AFRICAN AMERICAN 81 ML/MIN (>=60); GFR NON AFRICAN AMERICAN 70 ML/MIN (>=60); GLUCOSE, SERUM 96 MG/DL (60-99); POTASSIUM, SERUM 3.5 MMOL/L (3.5-5.3); SODIUM, SERUM 142 MMOL/L (135-148)
[2017-03-13 05:53] LABS: BASOPHILS 0.6 %; BASOPHILS ABSOLUTE 0.08 10/3/uL (0.0-0.16); EOSINOPHILS 6.6 %; EOSINOPHILS ABSOLUTE 0.91 10/3/uL (0.0-0.53); HEMATOCRIT 29.4 % (40.0-51.0); HEMOGLOBIN 9.8 g/dL (13.6-17.8); IMMATURE GRANULOCYTES 0.4 %; IMMATURE GRANULOCYTES ABSOLUTE 0.06 10/3/uL (0.0-0.11); LYMPHOCYTES 14.1 %; LYMPHOCYTES ABSOLUTE 1.94 10/3/uL (0.67-4.30); MEAN CORPUS HGB CONC 33.3 g/dL (32.0-36.0); MEAN PLATELET VOLUME 8.3 fL (9.2-13.0); MONOCYTES 5.4 %; MONOCYTES ABSOLUTE 0.74 10/3/uL (0.21-1.20); NEUTROPHILS 72.9 %; NEUTROPHILS ABSOLUTE 10.02 10/3/uL (2.02-8.40); PLATELET COUNT 466 10/3/uL (150-400); RBC DISTRIBUTION WIDTH 14.6 % (12.0-16.0); RED CELL COUNT 3.16 10/6/uL (4.7-6.1); WHITE BLOOD CELLS 13.8 10/3/uL (4.5-10.5)
[2017-03-13 06:09] LABS: MANUAL DIFF NO %
[2017-03-15 04:39] LABS: BASOPHILS 0.6 %; BASOPHILS ABSOLUTE 0.11 10/3/uL (0.0-0.16); EOSINOPHILS 8.8 %; HEMOGLOBIN 10.5 g/dL (13.6-17.8); IMMATURE GRANULOCYTES 0.8 %; IMMATURE GRANULOCYTES ABSOLUTE 0.13 10/3/uL (0.0-0.11); LYMPHOCYTES 15.3 %; LYMPHOCYTES ABSOLUTE 2.59 10/3/uL (0.67-4.30); MEAN CORPUS HGB CONC 32.4 g/dL (32.0-36.0); MEAN CORPUSCULAR HEMOGLOB 30.6 pg (26.0-34.0); MEAN CORPUSCULAR VOLUME 94.5 fL (80-100); MEAN PLATELET VOLUME 8.4 fL (9.2-13.0); MONOCYTES 8.8 %; NEUTROPHILS 65.7 %; NEUTROPHILS ABSOLUTE 11.13 10/3/uL (2.02-8.40); PLATELET COUNT 514 10/3/uL (150-400); RBC DISTRIBUTION WIDTH 14.3 % (12.0-16.0); RED CELL COUNT 3.43 10/6/uL (4.7-6.1)
[2017-03-15 04:42] LABS: HEMATOCRIT 32.4 % (40.0-51.0); MANUAL DIFF NO %
[2017-03-15 04:48] LABS: BUN (BLOOD UREA NITROGEN) 18 MG/DL (6-23); CHLORIDE, SERUM 107 MMOL/L (96-112); CO2 (CARBON DIOXIDE) 27 MMOL/L (24-34); CREATININE 1.17 MG/DL (0.70-1.30); GFR AFRICAN AMERICAN 76 ML/MIN (>=60); GFR NON AFRICAN AMERICAN 66 ML/MIN (>=60); GLUCOSE, SERUM 108 MG/DL (60-99); POTASSIUM, SERUM 3.6 MMOL/L (3.5-5.3); SODIUM, SERUM 142 MMOL/L (135-148)
[2017-03-16 10:18] LABS: CREATININE 1.16 MG/DL (0.70-1.30); VANCOMYCIN TROUGH 19.4 MCG/ML (10.0-20.0)
[2017-03-17 04:56] LABS: BASOPHILS 0.6 %; BASOPHILS ABSOLUTE 0.09 10/3/uL (0.0-0.16); EOSINOPHILS 12.5 %; EOSINOPHILS ABSOLUTE 1.75 10/3/uL (0.0-0.53); HEMATOCRIT 30.8 % (40.0-51.0); IMMATURE GRANULOCYTES 0.6 %; IMMATURE GRANULOCYTES ABSOLUTE 0.09 10/3/uL (0.0-0.11); LYMPHOCYTES 24.8 %; LYMPHOCYTES ABSOLUTE 3.47 10/3/uL (0.67-4.30); MEAN CORPUS HGB CONC 32.5 g/dL (32.0-36.0); MEAN CORPUSCULAR HEMOGLOB 30.8 pg (26.0-34.0); MEAN CORPUSCULAR VOLUME 94.8 fL (80-100); MEAN PLATELET VOLUME 8.2 fL (9.2-13.0); MONOCYTES 6.1 %; MONOCYTES ABSOLUTE 0.86 10/3/uL (0.21-1.20); NEUTROPHILS 55.4 %; NEUTROPHILS ABSOLUTE 7.76 10/3/uL (2.02-8.40); PLATELET COUNT 500 10/3/uL (150-400); RBC DISTRIBUTION WIDTH 14.2 % (12.0-16.0); RED CELL COUNT 3.25 10/6/uL (4.7-6.1)
[2017-03-17 04:57] LABS: MANUAL DIFF NO %
[2017-03-17 05:15] LABS: BUN (BLOOD UREA NITROGEN) 15 MG/DL (6-23); CHLORIDE, SERUM 102 MMOL/L (96-112); CO2 (CARBON DIOXIDE) 30 MMOL/L (24-34); CREATININE 1.25 MG/DL (0.70-1.30); GFR AFRICAN AMERICAN 71 ML/MIN (>=60); GFR NON AFRICAN AMERICAN 61 ML/MIN (>=60); GLUCOSE, SERUM 101 MG/DL (60-99); POTASSIUM, SERUM 3.9 MMOL/L (3.5-5.3); SODIUM, SERUM 138 MMOL/L (135-148)
[2017-03-20 04:45] LABS: BASOPHILS 0.4 %; BASOPHILS ABSOLUTE 0.06 10/3/uL (0.0-0.16); EOSINOPHILS 8.5 %; EOSINOPHILS ABSOLUTE 1.15 10/3/uL (0.0-0.53); HEMATOCRIT 30.8 % (40.0-51.0); IMMATURE GRANULOCYTES 0.3 %; IMMATURE GRANULOCYTES ABSOLUTE 0.04 10/3/uL (0.0-0.11); LYMPHOCYTES 17.5 %; LYMPHOCYTES ABSOLUTE 2.36 10/3/uL (0.67-4.30); MEAN CORPUS HGB CONC 32.5 g/dL (32.0-36.0); MEAN CORPUSCULAR HEMOGLOB 30.7 pg (26.0-34.0); MEAN CORPUSCULAR VOLUME 94.5 fL (80-100); MEAN PLATELET VOLUME 8.1 fL (9.2-13.0); MONOCYTES 6.1 %; MONOCYTES ABSOLUTE 0.83 10/3/uL (0.21-1.20); NEUTROPHILS 67.2 %; NEUTROPHILS ABSOLUTE 9.06 10/3/uL (2.02-8.40); PLATELET COUNT 465 10/3/uL (150-400); RBC DISTRIBUTION WIDTH 14.4 % (12.0-16.0); RED CELL COUNT 3.26 10/6/uL (4.7-6.1); WHITE BLOOD CELLS 13.5 10/3/uL (4.5-10.5)
[2017-03-20 04:46] LABS: MANUAL DIFF NO %
[2017-03-20 05:09] LABS: A/G RATIO 0.5 (0.7-1.9); ALBUMIN 2.4 G/DL (3.5-5.0); ALKALINE PHOSPHATASE 72 U/L (45-117); BUN (BLOOD UREA NITROGEN) 19 MG/DL (6-23); CHLORIDE, SERUM 106 MMOL/L (96-112); CO2 (CARBON DIOXIDE) 27 MMOL/L (24-34); CREATININE 1.26 MG/DL (0.70-1.30); GFR AFRICAN AMERICAN 70 ML/MIN (>=60); GFR NON AFRICAN AMERICAN 60 ML/MIN (>=60); GLOBULIN 4.4 G/DL (2.5-4.1); GLUCOSE, SERUM 99 MG/DL (60-99); POTASSIUM, SERUM 3.8 MMOL/L (3.5-5.3); SGOT(AST) 30 U/L (5-40); SGPT(ALT) 42 U/L (5-65); SODIUM, SERUM 142 MMOL/L (135-148); TOTAL BILIRUBIN 0.2 MG/DL (0-1.2); TOTAL PROTEIN 6.8 G/DL (6.0-8.5)
[2017-03-22 06:03] LABS: BASOPHILS 1.1 %; EOSINOPHILS 10.4 %; EOSINOPHILS ABSOLUTE 0.92 10/3/uL (0.0-0.53); HEMATOCRIT 32.1 % (40.0-51.0); HEMOGLOBIN 10.4 g/dL (13.6-17.8); IMMATURE GRANULOCYTES 0.2 %; IMMATURE GRANULOCYTES ABSOLUTE 0.02 10/3/uL (0.0-0.11); LYMPHOCYTES 33.1 %; LYMPHOCYTES ABSOLUTE 2.93 10/3/uL (0.67-4.30); MANUAL DIFF NO %; MEAN CORPUS HGB CONC 32.4 g/dL (32.0-36.0); MEAN CORPUSCULAR HEMOGLOB 30.5 pg (26.0-34.0); MEAN CORPUSCULAR VOLUME 94.1 fL (80-100); MEAN PLATELET VOLUME 8.1 fL (9.2-13.0); MONOCYTES 6.8 %; NEUTROPHILS 48.4 %; NEUTROPHILS ABSOLUTE 4.29 10/3/uL (2.02-8.40); PLATELET COUNT 419 10/3/uL (150-400); RBC DISTRIBUTION WIDTH 14.6 % (12.0-16.0); RED CELL COUNT 3.41 10/6/uL (4.7-6.1); WHITE BLOOD CELLS 8.9 10/3/uL (4.5-10.5)
[2017-03-22 06:14] LABS: BUN (BLOOD UREA NITROGEN) 22 MG/DL (6-23); CALCIUM, SERUM 9.3 MG/DL (8.5-10.4); CHLORIDE, SERUM 106 MMOL/L (96-112); CREATININE 1.35 MG/DL (0.70-1.30); GFR AFRICAN AMERICAN 64 ML/MIN (>=60); GFR NON AFRICAN AMERICAN 55 ML/MIN (>=60); GLUCOSE, SERUM 99 MG/DL (60-99); POTASSIUM, SERUM 3.6 MMOL/L (3.5-5.3); SODIUM, SERUM 142 MMOL/L (135-148)
[2017-03-22 06:15] LABS: CO2 (CARBON DIOXIDE) 32 MMOL/L (24-34)
== END 2017-03-23 17:15 | disposition home or self-care (01) | DRG 857 ==
LOC: 5NO 20:01
PROVIDERS: Internal Medicine Infectious Disease; Nurse Practitioner Family; Thoracic Surgery (Cardiothoracic Vascular Surgery)
PROC: 0J9N0ZZ Drainage of Right Lower Leg Subcutaneous Tissue and Fascia, Open Approach (ICD-10-PCS; principal; 2017-03-15 15:45)
DX: T81.4XXA Infection following a procedure, initial encounter (principal); L03.115 Cellulitis of right lower limb; Z95.1 Presence of aortocoronary bypass graft; I25.10 Atherosclerotic heart disease of native coronary artery without angina pectoris; Z79.02 Long term (current) use of antithrombotics/antiplatelets; Z79.82 Long term (current) use of aspirin; Z86.12 Personal history of poliomyelitis; N18.9 Chronic kidney disease, unspecified; B95.62 Methicillin resistant Staphylococcus aureus infection as the cause of diseases classified elsewhere
CPT/HCPCS: 71020; 80048; 80053; 80202; 82565; 85025; 87040; 87070; 87077; 87186; 87205; 93971; 97116-GP; 97162-GP; A9270-GY; J0690; J0692; J2250; J2405; J2543; J2710; J3010; J3370